=== PATIENT | female | born 1990 | race Caucasian/White ===

== ENCOUNTER 2020-09-15 13:13 | Outpatient (REF) | payer OTHER, SELFPAY ==
[2020-09-15 13:44] LABS: COVID-19 Test Negative (Negative)
== END 2020-09-15 13:14 | disposition home or self-care (01) ==
LOC: HO.EMPCOV 13:13
PROVIDERS: Visit Provider Internal Medicine
DX: Z20.822 Contact with and (suspected) exposure to COVID-19 (principal)
CPT/HCPCS: 36415; 87635

== ENCOUNTER → 2020-10-09 07:32 | Outpatient (BNVA) | payer OTHER, SELFPAY | PROVIDERS: Visit Provider Internal Medicine Endocrinology, Diabetes & Metabolism ==

== ENCOUNTER 2020-10-10 05:41 | Outpatient (REF) | payer OTHER, SELFPAY ==
[2020-10-10 08:01] LABS: Free T4 (Free Thyroxine) 1.48 ng/dL (0.71-1.85); Thyroid Stimulating Hormone 0.05 uIU/mL (0.32-4.0); Vitamin D 25-OH Total 20.9 ng/mL (>30)
== END 2020-10-10 05:42 | disposition home or self-care (01) ==
LOC: HO.LAB 05:41
PROVIDERS: Visit Provider Internal Medicine Endocrinology, Diabetes & Metabolism
DX: E89.0 Postprocedural hypothyroidism (principal); E55.9 Vitamin D deficiency, unspecified
CPT/HCPCS: 36415; 82306; 84439; 84443

== ENCOUNTER 2020-10-17 11:37 | Outpatient (REF) | payer OTHER, SELFPAY ==
[2020-10-22 06:06] LABS: HPV 16 RNA NOT DETECTED (NOT DETECTED); HPV mRNA E6/E7 rflx Detected (Not Detected)
== END 2020-10-17 11:38 | disposition home or self-care (01) ==
LOC: HO.LNP 11:37
PROVIDERS: Visit Provider Internal Medicine
DX: Z12.4 Encounter for screening for malignant neoplasm of cervix (principal); Z11.51 Encounter for screening for human papillomavirus (HPV)
CPT/HCPCS: 87624; 87625; 88142

== ENCOUNTER 2020-10-24 06:26 | Outpatient (REF) | payer OTHER, SELFPAY ==
[2020-10-24 07:23] LABS: Anion Gap 13 (12-20); Blood Urea Nitrogen 10 mg/dL (9-16); Calcium 8.8 mg/dL (8.4-10.2); Carbon Dioxide 23 mmol/L (22-29); Chloride 109 mmol/L (96-108); Cholesterol 180 mg/dL; Estimated Glomerular Filt Rate > 60; Glucose Fasting 88 mg/dL (60-99); HDL Cholesterol 43 mg/dL; LDL Cholesterol Calculated 116 mg/dl; Potassium 3.6 mmol/L (3.3-5.1); Sodium 141 mmol/L (135-145); Triglycerides 108 mg/dL
== END 2020-10-24 06:27 | disposition home or self-care (01) ==
LOC: HO.LAB 06:26
PROVIDERS: Visit Provider Internal Medicine
DX: Z00.01 Encounter for general adult medical examination with abnormal findings (principal); I10 Essential (primary) hypertension; E55.9 Vitamin D deficiency, unspecified
CPT/HCPCS: 36415; 80048; 80061

== ENCOUNTER → 2020-11-05 07:55 | Outpatient (BNVA) | payer OTHER, SELFPAY | PROVIDERS: PCP Internal Medicine; Visit Provider Obstetrics & Gynecology ==

== ENCOUNTER 2020-12-11 02:48 | Outpatient (REF) | payer OTHER, SELFPAY ==
[2020-12-11 06:41] LABS: Free T4 (Free Thyroxine) 1.24 ng/dL (0.71-1.85); Thyroid Stimulating Hormone 0.15 uIU/mL (0.32-4.0)
== END 2020-12-11 02:49 | disposition home or self-care (01) ==
LOC: HO.LAB 02:48
PROVIDERS: Visit Provider Internal Medicine Endocrinology, Diabetes & Metabolism
DX: E89.0 Postprocedural hypothyroidism (principal); E55.9 Vitamin D deficiency, unspecified
CPT/HCPCS: 36415; 84439; 84443

== ENCOUNTER 2020-12-12 13:49 | Outpatient (REF) | payer OTHER, SELFPAY | END 2020-12-12 13:50 | disposition home or self-care (01) | LOC: HO.LAB 13:49 | PROVIDERS: PCP Internal Medicine; Visit Provider Obstetrics & Gynecology | DX: N87.1 Moderate cervical dysplasia (principal); N72 Inflammatory disease of cervix uteri | CPT/HCPCS: 57454; 88305; 88342; 88360 ==

== ENCOUNTER → 2020-12-26 11:10 | Outpatient (BNVA) | payer OTHER, SELFPAY | PROVIDERS: PCP Internal Medicine; Visit Provider Obstetrics & Gynecology ==

== ENCOUNTER → 2021-01-09 10:40 | Outpatient (BNVA) | payer OTHER, SELFPAY | PROVIDERS: PCP Internal Medicine; Visit Provider Obstetrics & Gynecology ==

== ENCOUNTER 2021-01-10 10:22 | Outpatient (REF) | payer OTHER, SELFPAY ==
[2021-01-10 10:49] VITALS: BP 144/86; PULSE 73; RESP 16; TEMP 36.7; O2SAT 98
[2021-01-10 10:50] VITALS: BMI 27.8
--- NOTE | 2021-01-10 11:13 | MHC.SHP ---
Pre-Procedural Eval Section A The patient is an INPATIENT: No Changes since office visit: No Cold of Flu in the past 2 weeks, No New Medical Problems, No Changes in Medication and No Patient answered all questions The History & Physical has been completed within 30 days and I have reviewed it.: Yes Section B Chief Complaint: C1N2 Allergies: Allergies Allergy/AdvReac Type Severity Reaction Status Date / Time amoxicillin [Amoxicillin] Allergy Unknown HIVES Verified 01/09/21 10:48 Plan Diagnosis/Plan: Unchanged I have reviewed the history and physical and performed a pertinent physical examination on my patient. No changes have occurred unless specified.
--- NOTE | 2021-01-10 11:13 | PM.OP ---
Brief Operative Note Date of Service: 08/16/20 Pre-op diagnosis: ANITA 2 with negative ECC Post-op diagnosis: same Procedure: LEEP Surgeon: Anatoliy Jaimes MD Anesthesia: other (Paracervical block) Was an Admissions Counselor used for this Procedure?: No Estimated blood loss (mL): 0 Pathology: other (Ant+post Cerv lip) Condition: stable Disposition: other (Home)
--- NOTE | 2021-01-10 11:14 | W.PM.OPN ---
Operative Note Operative Note Date of Service: 08/16/20 Narrative: Preop diagnosis: ANITA 2 with Negative ECC Operation: LEEP Post op diagnosis: same Anesthesia: paracervical block Complications: none Pathology: Anterior and Posterior cervical lip QBL: minimal Procedure: The patient was put in the dorsal lithotomy position, was prepped and draped in the usual sterile fashion. A sterile speculum was inserted inside the patient vagina. Colposcopy done with acetic acid, 9 and 12 o'clcok acetowhite lesions identified. Using Lugol solution the cervix with Dyed with Lugol solution to identifiy the abnormal demarcating line. 10 cc of Marcaine0.5% with epinephrine were given at 2,4 , 8, and 10 o'clock. Using a medium-size loop wire, the anterior cervical lip was excised followed by the posterior cervical lip. Hemostasis was assured using cautery and Monsel solution. All instruments were taken out of the patient's vaginal cavity. the patient tolerated the procedure well and was discharged home with the following instructions: call if temperature is above 100.4, vaginal bleeding, abdominal pain or nausea or vomiting. Follow-up in the office in 2 weeks for postop visit
== END 2021-01-10 10:23 | disposition home or self-care (01) ==
LOC: HO.MS 10:22
PROVIDERS: PCP Internal Medicine; Visit Provider Obstetrics & Gynecology
PROC: 0UBC7ZZ Excision of Cervix, Via Natural or Artificial Opening (ICD-10-PCS; CPT 57522; principal; 2021-01-10 10:40)
DX: N87.1 Moderate cervical dysplasia (principal); Z88.0 Allergy status to penicillin; E05.00 Thyrotoxicosis with diffuse goiter without thyrotoxic crisis or storm; E28.2 Polycystic ovarian syndrome; Z79.899 Other long term (current) drug therapy
CPT/HCPCS: 57460; 88307

== ENCOUNTER → 2021-01-21 14:45 | Outpatient (BNVA) | payer OTHER, SELFPAY | PROVIDERS: PCP Internal Medicine; Visit Provider Obstetrics & Gynecology ==

== ENCOUNTER 2021-02-13 05:32 | Outpatient (REF) | payer OTHER, SELFPAY ==
[2021-02-13 08:20] LABS: Free T4 (Free Thyroxine) 1.32 ng/dL (0.71-1.85); Thyroid Stimulating Hormone 0.39 uIU/mL (0.32-4.0)
== END 2021-02-13 05:33 | disposition home or self-care (01) ==
LOC: HO.LAB 05:32
PROVIDERS: Visit Provider Internal Medicine Endocrinology, Diabetes & Metabolism
DX: E89.0 Postprocedural hypothyroidism (principal)
CPT/HCPCS: 36415; 84439; 84443

== ENCOUNTER 2021-06-19 03:57 | Outpatient (REF) | payer OTHER, SELFPAY ==
[2021-06-19 08:13] LABS: Free T4 (Free Thyroxine) 1.04 ng/dL (0.71-1.85); Thyroid Stimulating Hormone 4.37 uIU/mL (0.32-4.0)
== END 2021-06-19 03:58 | disposition home or self-care (01) ==
LOC: HO.LAB 03:57
PROVIDERS: Visit Provider Internal Medicine Endocrinology, Diabetes & Metabolism
DX: E55.9 Vitamin D deficiency, unspecified (principal)
CPT/HCPCS: 36415; 84439; 84443

== ENCOUNTER → 2021-06-26 07:19 | Outpatient (BNVA) | payer OTHER, SELFPAY | PROVIDERS: PCP Internal Medicine; Visit Provider Internal Medicine ==

== ENCOUNTER 2021-08-07 07:13 | Outpatient (REF) | payer OTHER, SELFPAY ==
--- NOTE | ~2021-08-07 | US_ITS ---
EXAMINATION: US SOFT TISSUE OF THE NECK CLINICAL INFORMATION: Postprocedural hypothyroidism. History of radiation/iodine treatment at 10 years old. COMPARISON: None TECHNIQUE: Linear transducer chapa-scale and color Doppler examination of the thyroid bed and surrounding soft tissue. FINDINGS: Both thyroid lobes are not visualized. There are no nodules, mass or lymph nodes seen in the thyroid bed. No obvious thyroid tissue seen. US/US thyroid IMPRESSION: No obvious thyroid tissue seen at this time. There are no nodules or lymph nodes seen in the thyroid bed region.
== END 2021-08-07 07:14 | disposition home or self-care (01) ==
LOC: HO.US 07:13
PROVIDERS: PCP Internal Medicine; Visit Provider Internal Medicine
DX: E89.0 Postprocedural hypothyroidism (principal)
CPT/HCPCS: 76536

== ENCOUNTER 2021-08-09 07:42 | Outpatient (REF) | payer OTHER, SELFPAY ==
[2021-08-09 08:25] LABS: Estimated Average Glucose 91 mg/dL; Hemoglobin A1c % 4.8 %
[2021-08-09 08:31] LABS: Glucose Fasting 82 mg/dL (60-99)
[2021-08-09 08:32] LABS: Alanine Aminotransferase 29 U/L (0-31); Albumin Level 4.4 g/dL (3.5-5.0); Alkaline Phosphatase 73 U/L (39-117); Anion Gap 12 (12-20); Aspartate Amino Transferase 19 U/L (5-31); Bilirubin Total 0.6 mg/dL (0.0-1.0); Blood Urea Nitrogen 13 mg/dL (9-16); Calcium 9.2 mg/dL (8.4-10.2); Carbon Dioxide 23 mmol/L (22-29); Chloride 109 mmol/L (96-108); Cholesterol 194 mg/dL; Estimated Glomerular Filt Rate > 60; Glucose Random 83 mg/dL (60-115); HDL Cholesterol 56 mg/dL; LDL Cholesterol Calculated 124 mg/dl; Sodium 140 mmol/L (135-145); Total Protein 7.6 g/dL (6.5-8.0); Triglycerides 71 mg/dL
[2021-08-09 08:52] LABS: Free T4 (Free Thyroxine) 1.49 ng/dL (0.71-1.85); HCG Quantitative < 2 mIU/mL; Thyroid Stimulating Hormone 1.05 uIU/mL (0.32-4.0)
[2021-08-09 09:21] LABS: Cortisol Random 24.5 ug/dL
[2021-08-09 10:42] LABS: Glucose 2 Hour 127 mg/dL
[2021-08-09 12:41] LABS: Glucose 1 Hour 155 mg/dL
[2021-08-10 06:36] LABS: LDL Cholesterol Direct 116 mg/dL (<100)
[2021-08-10 14:37] LABS: Follicle Stimulating Hormone 6.5 mIU/mL; Lutenizing Hormone 8.9 mIU/mL; Prolactin 13.3 ng/mL; Triiodothyronine T3 Total 109 ng/dL (76-181)
[2021-08-11 18:56] LABS: Adrenocorticotropic Hormone 114 pg/mL (6-50)
[2021-08-11 19:35] LABS: DHEA Sulfate 597 mcg/dL (23-266)
[2021-08-12 10:21] LABS: Sex Hormone Binding Globulin 40 nmol/L (17-124)
[2021-08-14 10:57] LABS: Testosterone, Free 8.4 pg/mL (0.1-6.4); Testosterone, Total 62 ng/dL (2-45)
[2021-08-14 22:06] LABS: Androstenedione 283 ng/dL
[2021-08-23 21:22] LABS: Estradiol Free 0.99 pg/mL; Estradiol, Ultrasensitive 57 pg/mL
== END 2021-08-09 07:43 | disposition home or self-care (01) ==
LOC: HO.LAB 07:42
PROVIDERS: PCP Internal Medicine; Visit Provider Internal Medicine
DX: E89.0 Postprocedural hypothyroidism (principal); E28.2 Polycystic ovarian syndrome
CPT/HCPCS: 36415; 80053; 80061; 82024; 82157; 82533; 82627; 82670; 82681; 83001; 83002; 83036; 83498; 83721; 84146; 84270; 84402; 84403; 84439; 84443; 84480; 84702

== ENCOUNTER 2021-08-21 07:26 | Outpatient (REF) | payer OTHER, SELFPAY ==
--- NOTE | ~2021-08-21 | MR_ITS ---
EXAMINATION: MR BRAIN WITHOUT AND WITH CONTRAST CLINICAL INFORMATION: Pituitary dependent Ksenia's disease. COMPARISON: None available. TECHNIQUE: Multiplanar, multisequence imaging of the brain was performed before and after the intravenous administration of 4 mL of Gadavist. FINDINGS: There is no acute infarction, mass, hemorrhage, or extra-axial collection. No abnormal or unexpected intracranial enhancement is seen. The ventricles, sulci, and basilar cisterns are normal in size and configuration. The pituitary gland demonstrates normal size and morphology. No definite hypoenhancing lesion is seen within the gland. The infundibulum is normal in thickness and morphology and inserts in the midline. The hypothalamus appears normal. The cavernous sinuses demonstrate symmetric enhancement. The flow voids of the major intracranial arteries appear intact. The bones and extracranial soft tissues are within normal limits. There is mild paranasal sinus mucosal thickening. MR/MR head/brain wo/w con IMPRESSION: No definite pituitary or hypothalamic abnormality is seen. No intracranial mass or acute abnormality.
== END 2021-08-21 07:27 | disposition home or self-care (01) ==
LOC: HO.MRI 07:26
PROVIDERS: PCP Internal Medicine; Visit Provider Internal Medicine
DX: E24.0 Pituitary-dependent Cushing's disease (principal)
CPT/HCPCS: 70553; A9585

== ENCOUNTER 2021-08-22 07:24 | Outpatient (REF) | payer OTHER, SELFPAY ==
[2021-08-22 09:02] LABS: Cortisol Random < 1.0 ug/dL
[2021-08-25 18:11] LABS: Adrenocorticotropic Hormone 6 pg/mL (6-50)
[2021-09-02 18:16] LABS: Dexamethasone 158 ng/dL
== END 2021-08-22 07:25 | disposition home or self-care (01) ==
LOC: HO.LAB 07:24
PROVIDERS: PCP Internal Medicine; Visit Provider Internal Medicine
DX: E24.0 Pituitary-dependent Cushing's disease (principal)
CPT/HCPCS: 36415; 80299; 82024; 82533

== ENCOUNTER 2021-09-03 07:44 | Outpatient (REF) | payer OTHER, SELFPAY ==
[2021-09-09 18:41] LABS: Saliva Cortisol 0.14 mcg/dL
== END 2021-09-03 07:45 | disposition home or self-care (01) ==
LOC: HO.LNP 07:44
PROVIDERS: Visit Provider Internal Medicine
DX: E24.0 Pituitary-dependent Cushing's disease (principal)
CPT/HCPCS: 82530

== ENCOUNTER 2021-09-15 09:35 | Outpatient (REF) | payer OTHER, SELFPAY ==
[2021-09-19 18:06] LABS: Saliva Cortisol 1.16 mcg/dL
== END 2021-09-15 09:36 | disposition home or self-care (01) ==
LOC: HO.LNP 09:35
PROVIDERS: Visit Provider Internal Medicine
DX: E24.0 Pituitary-dependent Cushing's disease (principal)
CPT/HCPCS: 82530

== ENCOUNTER 2021-09-26 11:29 | Outpatient (REF) | payer OTHER, SELFPAY ==
[2021-10-01 14:47] LABS: Saliva Cortisol 0.18 mcg/dL
== END 2021-09-26 11:30 | disposition home or self-care (01) ==
LOC: HO.LNP 11:29
PROVIDERS: Visit Provider Internal Medicine
DX: E24.0 Pituitary-dependent Cushing's disease (principal)
CPT/HCPCS: 82530

== ENCOUNTER 2021-10-03 07:18 | Outpatient (REF) | payer OTHER, SELFPAY ==
[2021-10-03 09:14] LABS: Cortisol Random 8.7 ug/dL
[2021-10-06 16:35] LABS: Adrenocorticotropic Hormone 8 pg/mL (6-50)
== END 2021-10-03 07:19 | disposition home or self-care (01) ==
LOC: HO.LAB 07:18
PROVIDERS: PCP Internal Medicine; Visit Provider Internal Medicine
DX: E24.0 Pituitary-dependent Cushing's disease (principal)
CPT/HCPCS: 36415; 82024; 82533

== ENCOUNTER 2021-10-11 07:07 | Outpatient (REF) | payer OTHER, SELFPAY ==
[2021-10-11 08:45] LABS: Cortisol Random < 1.0 ug/dL
[2021-10-16 13:22] LABS: Dexamethasone 175 ng/dL
[2021-10-17 11:07] LABS: Adrenocorticotropic Hormone 6 pg/mL (6-50)
== END 2021-10-11 07:08 | disposition home or self-care (01) ==
LOC: HO.LAB 07:07
PROVIDERS: PCP Internal Medicine; Visit Provider Internal Medicine
DX: E24.0 Pituitary-dependent Cushing's disease (principal)
CPT/HCPCS: 36415; 80299; 82024; 82533

== ENCOUNTER 2021-10-18 08:28 | Outpatient (REF) | payer OTHER, SELFPAY ==
[2021-10-18 09:03] LABS: Total Volume 24 Hour Urine 1450 mL
[2021-10-18 10:00] LABS: Creatinine, 24Hr Urine 1.4 G/Day (1.0-2.0); Creatinine, mg/dL 93.28
[2021-10-23 21:41] LABS: Cortisol Free, 24 Hr Urine 27.1 mcg/24 h (4.0-50.0); Creatinine, 24 Hr Urine 1.43 g/24 h (0.50-2.15); Total Volume, 24 Hr Urine 1450 mL
== END 2021-10-18 08:29 | disposition home or self-care (01) ==
LOC: HO.LNP 08:28
PROVIDERS: Visit Provider Internal Medicine
DX: E24.0 Pituitary-dependent Cushing's disease (principal)
CPT/HCPCS: 82530; 82570

== ENCOUNTER 2021-10-20 10:29 | Outpatient (REF) | payer OTHER, SELFPAY ==
[2021-10-20 11:45] LABS: MANUAL DIFF FLAG NO
[2021-10-20 11:53] LABS: Basophils Absolute Auto 0.1 X10*3/uL (0.0-0.2); Basophils Percent Auto 0.9 % (0-2); Eosinophils Absolute Auto 0.1 X10*3/uL (0.0-0.4); Eosinophils Percent Auto 1.5 % (0-4); Hematocrit 37.8 % (37.0-47.0); Hemoglobin 12.8 g/dl (12.0-16.0); Imm Gran Abs Auto 0.03 X10*3/uL (0.00-0.03); Imm Gran Pct Auto 0.4 % (0.0-0.4); Lymphocytes Absolute Auto 2.4 X10*3/uL (1.2-4.9); Lymphocytes Percent Auto 36.3 % (20-40); Mean Corpuscular HGB Conc 33.9 g/dl (31.0-35.0); Mean Corpuscular Hemoglobin 30.3 pg (27.0-33.0); Mean Corpuscular Volume 89.6 fL (80.0-98.0); Mean Platelet Volume 9.4 fL (9.4-12.3); Monocytes Absolute Auto 0.6 X10*3/uL (0.1-1.2); Monocytes Percent Auto 8.8 % (2-11); Neutrophils Absolute Auto 3.5 x10*3/uL (2.0-8.3); Neutrophils Percent Auto 52.1 % (45-73); Platelet Count 357 X10*3/uL (160-400); Red Blood Count 4.22 X10*6/uL (4.20-5.50); Red Cell Distribution Width 13.2 % (11.0-16.0); White Blood Count 6.7 X10*3/uL (4.8-10.8)
[2021-10-20 12:04] LABS: Cholesterol 204 mg/dL; Glucose Fasting 83 mg/dL (60-99); HDL Cholesterol 60 mg/dL; LDL Cholesterol Calculated 128 mg/dl; Triglycerides 81 mg/dL
[2021-10-20 12:22] LABS: Vitamin D 25-OH Total 20.1 ng/mL (>30)
== END 2021-10-20 10:30 | disposition home or self-care (01) ==
LOC: HO.HMGCLDS 10:29
PROVIDERS: Visit Provider Internal Medicine
DX: Z00.01 Encounter for general adult medical examination with abnormal findings (principal); E55.9 Vitamin D deficiency, unspecified; E89.0 Postprocedural hypothyroidism
CPT/HCPCS: 36415; 80061; 82306; 82947; 85025

== ENCOUNTER → 2021-10-22 09:09 | Outpatient (BNVA) | payer OTHER, SELFPAY | PROVIDERS: PCP Internal Medicine; Visit Provider Internal Medicine ==

== ENCOUNTER 2021-10-24 | Outpatient (REF) | payer OTHER, SELFPAY ==
[2021-10-31 16:32] LABS: Saliva Cortisol 0.65 mcg/dL
[2021-10-31 16:32] LABS: Saliva Cortisol <0.03 mcg/dL
[2021-10-31 16:32] LABS: Saliva Cortisol <0.03 mcg/dL
[2021-10-31 16:32] LABS: Saliva Cortisol 0.17 mcg/dL
== END 2021-10-24 00:01 | disposition home or self-care (01) ==
LOC: HO.LNP
PROVIDERS: Visit Provider Internal Medicine
DX: E24.0 Pituitary-dependent Cushing's disease (principal)
CPT/HCPCS: 82530

== ENCOUNTER 2021-10-25 07:52 | Outpatient (REF) | payer OTHER, SELFPAY | END 2021-10-25 07:53 | disposition home or self-care (01) | LOC: HO.LNP 07:52 | PROVIDERS: Visit Provider Internal Medicine | DX: Z13.89 Encounter for screening for other disorder (principal) ==

== ENCOUNTER 2021-10-30 11:06 | Outpatient (REF) | payer OTHER, SELFPAY ==
--- NOTE | ~2021-10-30 | US_ITS ---
EXAMINATION: US PELVIS CLINICAL INFORMATION: Elevated testosterone. COMPARISON: None TECHNIQUE: Ultrasound of the pelvis is performed using both transabdominal and transvaginal transducers along with Doppler. Transvaginal imaging is performed due to inadequate visualization transabdominally. FINDINGS: Uterus: The uterus is anteverted, anteflexed and measures 8.6 cm in length, 4.02 mL in AP and 5.70 cm in transverse dimension. The double wall endometrial thickness is 1.33 cm. The uterus is smooth in contour and has normal myometrial echogenicity. No visible fibroid. Adnexa: Both ovaries are visualized. There is normal color flow to the adnexa. There is no ovarian torsion. There is no pelvic ascites or fluid collection. Right ovary measures 3.08 x 2.13 x 2.70 cm and volume 9.27 mL. No focal lesion seen. Previously right ovary measured 3.3 x 2.1 x 3.4 cm. Left ovary measures 2.68 x 2.14 x 2.33 cm and volume 7.00 mL. The left ovary is unremarkable. Previously it measured 2.8 x 2.1 x 2.0 cm. There is no free fluid in cul-de-sac. US/US pelvic and transvaginal IMPRESSION: Unremarkable uterus and ovaries.
== END 2021-10-30 11:07 | disposition home or self-care (01) ==
LOC: HO.US 11:06
PROVIDERS: Visit Provider Internal Medicine
DX: E24.0 Pituitary-dependent Cushing's disease (principal); R79.89 Other specified abnormal findings of blood chemistry
CPT/HCPCS: 76830; 76856

== ENCOUNTER 2021-11-21 09:48 | Outpatient (REF) | payer OTHER, SELFPAY ==
--- NOTE | ~2021-11-21 | CT_ITS ---
EXAMINATION: CT ABDOMEN WITHOUT AND WITH CONTRAST CLINICAL INFORMATION: Pituitary dependent Cushings disease COMPARISON: Previous CT of the abdomen and pelvis March 2017 TECHNIQUE: Contiguous axial thin section helical images of the abdomen were performed before and after the administration of oral contrast and 85 mL of Omnipaque 350 intravenous contrast. The data set was reformatted in the coronal and sagittal planes and reviewed on an independent workstation. This CT examination was performed using dose optimization techniques as appropriate, variously including the following: *Automated exposure control *Adjustment of mA and/or kV according to patient size (this includes techniques or standardized protocols for targeted exams where dose is matched to indication/reason for exam; i.e. extremities or head) *Use of iterative reconstruction technique DLP: 367 mGy-cm FINDINGS: LUNG BASES: Unremarkable LIVER, GALLBLADDER, AND BILIARY TREE: Unremarkable PANCREAS: Unremarkable SPLEEN: Unremarkable ADRENAL GLANDS AND KIDNEYS: The adrenal glands are normal-appearing. No nodule is seen. There are 2 small low-attenuation lesions in the lower pole of the left kidney probably representing cysts. The largest measures 1 cm. No imaging follow-up is indicated. The kidneys are otherwise normal appearing. BOWEL LOOPS: There is diverticulosis of the colon. Visualized bowel is otherwise unremarkable. There is a small esophageal hernia. The stomach is otherwise unremarkable. LYMPH NODES: Normal. VASCULAR: Unremarkable. BONES: Unremarkable CT/CT abdomen wo/w con IMPRESSION: Normal-appearing adrenal glands. No adrenal lesion seen. Small left renal cysts. Diverticulosis of the colon. Small esophageal hernia. Fleischner guidelines were followed.
[2021-11-21] MEDS: iohexoL 350 MG/ML 100 ML INFUS..BTL IV (10:36)
== END 2021-11-21 09:49 | disposition home or self-care (01) ==
LOC: HO.CT 09:48
PROVIDERS: Visit Provider Internal Medicine
DX: E24.0 Pituitary-dependent Cushing's disease (principal)
CPT/HCPCS: 74170; Q9967

== ENCOUNTER → 2022-01-15 07:33 | Outpatient (BNVA) | payer OTHER, SELFPAY | PROVIDERS: PCP Internal Medicine; Visit Provider Internal Medicine | DX: Z13.89 Encounter for screening for other disorder (principal) ==

== ENCOUNTER 2022-01-27 15:14 | Outpatient (REF) | payer OTHER, SELFPAY ==
[2022-02-03 11:51] LABS: HPV mRNA E6/E7 rflx Not Detected (Not Detected)
== END 2022-01-27 15:15 | disposition home or self-care (01) ==
LOC: HO.LAB 15:14
PROVIDERS: PCP Internal Medicine; Visit Provider Obstetrics & Gynecology
DX: Z01.419 Encounter for gynecological examination (general) (routine) without abnormal findings (principal); Z11.51 Encounter for screening for human papillomavirus (HPV)
CPT/HCPCS: 87624; 88142

== ENCOUNTER 2022-02-14 07:49 | Outpatient (REF) | payer OTHER, SELFPAY ==
[2022-02-14 08:09] LABS: COVID-19 Test Negative (Negative); IDNOW Serial# 16C4AD1C
== END 2022-02-14 07:50 | disposition home or self-care (01) ==
LOC: HO.LAB 07:49
PROVIDERS: Visit Provider Internal Medicine
DX: Z20.822 Contact with and (suspected) exposure to COVID-19 (principal)
CPT/HCPCS: 87635; C9803

== ENCOUNTER 2022-02-24 07:20 | Outpatient (REF) | payer OTHER, SELFPAY ==
[2022-02-24 08:29] LABS: Cortisol Random 12.2 ug/dL
[2022-02-24 08:36] LABS: Free T4 (Free Thyroxine) 1.74 ng/dL (0.71-1.85); Thyroid Stimulating Hormone 0.09 uIU/mL (0.32-4.0); Vitamin D 25-OH Total 72.9 ng/mL (>30)
[2022-02-25 21:36] LABS: Adrenocorticotropic Hormone 12 pg/mL (6-50)
[2022-02-26 08:57] LABS: DHEA Sulfate 458 mcg/dL (19-237); Sex Hormone Binding Globulin 38 nmol/L (17-124)
[2022-03-02 11:41] LABS: Testosterone, Free 8.5 pg/mL (0.1-6.4); Testosterone, Total 60 ng/dL (2-45)
[2022-03-02 15:42] LABS: Androstenedione 253 ng/dL
== END 2022-02-24 07:21 | disposition home or self-care (01) ==
LOC: HO.LAB 07:20
PROVIDERS: PCP Internal Medicine; Visit Provider Internal Medicine
DX: E55.9 Vitamin D deficiency, unspecified (principal); E89.0 Postprocedural hypothyroidism; L68.0 Hirsutism
CPT/HCPCS: 36415; 82024; 82157; 82306; 82533; 82627; 84270; 84402; 84403; 84439; 84443

== ENCOUNTER 2022-04-11 08:50 | Outpatient (REF) | payer OTHER, SELFPAY ==
[2022-04-11 09:53] LABS: Thyroid Stimulating Hormone 1.84 uIU/mL (0.32-4.0)
== END 2022-04-11 08:51 | disposition home or self-care (01) ==
LOC: HO.LAB 08:50
PROVIDERS: Visit Provider Internal Medicine
DX: E89.0 Postprocedural hypothyroidism (principal)
CPT/HCPCS: 36415; 84439; 84443

== ENCOUNTER 2022-04-14 11:45 | Outpatient (REF) | payer OTHER, SELFPAY ==
[2022-04-14 15:16] LABS: CT PCR NOT DETECTED (Not Detect.); NG PCR NOT DETECTED (Not Detect.)
[2022-04-15 14:20] LABS: BV Int Neg Control Negative (Negative); BV Int Pos Control Positive (Positive)
== END 2022-04-14 11:46 | disposition home or self-care (01) ==
LOC: HO.LAB 11:45
PROVIDERS: Visit Provider Obstetrics & Gynecology
DX: Z11.3 Encounter for screening for infections with a predominantly sexual mode of transmission (principal); Z20.2 Contact with and (suspected) exposure to infections with a predominantly sexual mode of transmission
CPT/HCPCS: 87480; 87491; 87510; 87591; 87660

== ENCOUNTER 2022-06-05 12:23 | Outpatient (REF) | payer OTHER, SELFPAY ==
[2022-06-05 12:47] LABS: COVID-19 Test Negative (Negative); IDNOW Serial# 9DB6401D
== END 2022-06-05 12:24 | disposition home or self-care (01) ==
LOC: HO.LAB 12:23
PROVIDERS: Visit Provider Internal Medicine
DX: Z20.822 Contact with and (suspected) exposure to COVID-19 (principal)
CPT/HCPCS: 87635; C9803

== ENCOUNTER 2022-07-25 06:33 | Outpatient (REF) | payer OTHER, SELFPAY ==
[2022-07-25 07:46] LABS: Alanine Aminotransferase 12 U/L (0-31); Albumin Level 4.2 g/dL (3.5-5.0); Alkaline Phosphatase 51 U/L (39-117); Anion Gap 13 (12-20); Aspartate Amino Transferase 12 U/L (5-31); Bilirubin Total 0.4 mg/dL (0.0-1.0); Blood Urea Nitrogen 12 mg/dL (9-16); Calcium 9.4 mg/dL (8.4-10.2); Carbon Dioxide 21 mmol/L (22-29); Chloride 111 mmol/L (96-108); Estimated Glomerular Filt Rate > 60; Free T4 (Free Thyroxine) 1.33 ng/dL (0.71-1.85); Glucose Random 97 mg/dL (60-115); HCG Quantitative < 2 mIU/mL; Potassium 4.4 mmol/L (3.3-5.1); Sodium 141 mmol/L (135-145); Thyroid Stimulating Hormone 2.98 uIU/mL (0.32-4.0); Total Protein 7.4 g/dL (6.5-8.0)
[2022-07-27 01:57] LABS: LDL Cholesterol Direct 156 mg/dL (<100)
[2022-07-27 05:12] LABS: DHEA Sulfate 316 mcg/dL (19-237); Follicle Stimulating Hormone 7.3 mIU/mL; Lutenizing Hormone 5.7 mIU/mL; Sex Hormone Binding Globulin 97 nmol/L (17-124)
[2022-08-06 22:38] LABS: Estradiol Free 1.09 pg/mL; Estradiol, Ultrasensitive 75 pg/mL
== END 2022-07-25 06:34 | disposition home or self-care (01) ==
LOC: HO.LAB 06:33
PROVIDERS: Visit Provider Internal Medicine
DX: E28.2 Polycystic ovarian syndrome (principal); E89.0 Postprocedural hypothyroidism
CPT/HCPCS: 36415; 80053; 82627; 82670; 82681; 83001; 83002; 83721; 84270; 84439; 84443; 84702

== ENCOUNTER 2022-08-05 11:30 | Outpatient (REF) | payer OTHER, SELFPAY ==
[2022-08-05 11:55] LABS: COVID-19 Test Negative (Negative); IDNOW Serial# 55D5AD1C
== END 2022-08-05 11:31 | disposition home or self-care (01) ==
LOC: HO.LAB 11:30
PROVIDERS: Visit Provider Internal Medicine
DX: Z20.822 Contact with and (suspected) exposure to COVID-19 (principal)
CPT/HCPCS: 87635; C9803

== ENCOUNTER → 2022-09-30 07:28 | Outpatient (BNVA) | payer OTHER, SELFPAY | PROVIDERS: PCP Internal Medicine; Visit Provider Internal Medicine | DX: Z13.89 Encounter for screening for other disorder (principal) ==

== ENCOUNTER 2022-12-19 05:59 | Outpatient (REF) | payer OTHER, SELFPAY ==
[2022-12-19 06:58] LABS: Cholesterol 167 mg/dL; HDL Cholesterol 56 mg/dL; LDL Cholesterol Calculated 77 mg/dl; Triglycerides 171 mg/dL
[2022-12-20 16:28] LABS: LDL Cholesterol Direct 77 mg/dL (<100)
== END 2022-12-19 06:00 | disposition home or self-care (01) ==
LOC: HO.LAB 05:59
PROVIDERS: Visit Provider Internal Medicine
DX: E78.5 Hyperlipidemia, unspecified (principal)
CPT/HCPCS: 36415; 80061; 83721

== ENCOUNTER → 2022-12-30 07:24 | Outpatient (BNVA) | payer OTHER, SELFPAY | PROVIDERS: PCP Internal Medicine; Visit Provider Internal Medicine | DX: Z13.89 Encounter for screening for other disorder (principal) ==

== ENCOUNTER 2023-03-01 15:00 | Outpatient (REF) | payer OTHER, SELFPAY ==
[2023-03-04 21:17] LABS: HPV mRNA E6/E7 rflx Not Detected (Not Detected)
== END 2023-03-01 15:01 | disposition home or self-care (01) ==
LOC: HO.LNP 15:00
PROVIDERS: PCP Internal Medicine; Visit Provider Obstetrics & Gynecology
DX: Z01.419 Encounter for gynecological examination (general) (routine) without abnormal findings (principal); Z11.51 Encounter for screening for human papillomavirus (HPV)
CPT/HCPCS: 87624; 88142

== ENCOUNTER 2023-09-27 07:50 | Outpatient (AMB) | payer OTHER, SELFPAY ==
[2023-09-27 07:53] VITALS: BP 112/76; PULSE 112; BMI 29.7
--- NOTE | 2023-09-27 07:53 | MHC.OFFVIS ---
Intake Vital Signs 09/27/23 07:53 Height 5 ft 8 in Weight 195 lb 8.8 oz BMI 29.7 BP 112/76 Blood Pressure Location Rt brachial Position Sitting Pulse 112 H Pulse Source Pulse Oximeter Intake Visit Reasons: F/U PCOS, needs 30 min Intake Note: Patient presents today for PCOS follow up, last seen by Dr. Cool on 12/30/2022. Preparer Required: No Accompanied by: Self / Same As Patient Allergies amoxicillin [Amoxicillin] Allergy (Unknown, Verified 09/27/23 07:55) HIVES Medication List - Last Reconciled 09/27/23 by Hayes Louis MD atorvastatin 10 mg PO BEDTIME famotidine 40 mg PO DAILY 90 days levothyroxine 125 mcg PO DAILY norgestimate-ethinyl estradiol 0.25-35 mg-mcg (Sprintec (28)) 1 tab PO DAILY 3 months HPI HPI Comments History of Present Illness Details 32 YO Female with a PMHx of Grave's disease S/P I-131 ablation, now with hypothyroidism who is seen in F/U for hypothyroidism as well as PCOS. The patient last saw Dr. Cool 12/30/2022 She was diagnosed with Grave's disease at 9 years old and was followed by a Pediatric [facility] at [facility]. She received I131 ablation in 1999, but is unsure of the dose. She subsequently developed postablative hypothyroidism. She has remained on levothyroxine ever since, but has had many issues with compliance. She at times is overreplaced when she is taking her lt4 daily, and at times hypothyroid when she is poorly compliant. She is currently using levothyroxine 125 mcg daily. This was decreased from 137 mcg when her TSH was found to be overly suppressed. 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 She had a biochemical assessment for this which revealed an elevated DHEA-s, Androstenedione and testosterone levels. She had ovarian and adrenal imaging in 2017 which was WNL. It appears she did undergo a 1 mg DSST in 2017 which was WNL. After her initial visit with me we repeated her full evaluation, which reveals labs concerning for Ksenia's disease with elevated ACTH, as well as elevated androgen, testosterone and DHEA-s levels. Midnight salivary cortisol levels were elevated, but these were completed when she was working overnight. 1 mg overnight DSST was WNL. She also underwent a pituitary MRI which was WNL. Adrenal imaging was completed 11/21/2021 completely WNL with no evidence of any adrenal masses. There were 2 small cystic appearing lesions noted within the kidney. Ovarian imaging was completed 10/30/2021 and also was WNL. We completed a salivary cortisol profile, which was also WNL effectively ruling out ksenia's disease. She is now off night shifts, and is working a regular daytime schedule. Labs were repeated with ACTH and Cortisol am WNL. Her Androstenedione, DHEA-s and both Free and Total testosterone have been elevated. She is not actively trying to conceive. She is currently using Sprintec OCP. Labs reveal elevated LDL. She denies any family history of premature cardiac or CAD. She was started on Atorvastatin 10 mg PO daily and LDL is now at goal. She is tolerating this well. Ovarian US: 10/30/2021 Uterus: The uterus is anteverted, anteflexed and measures 8.6 cm in length, 4.02 mL in AP and 5.70 cm in transverse dimension. The double wall endometrial thickness is 1.33 cm.? The uterus is smooth in contour and has normal myometrial echogenicity. ? No visible fibroid. Adnexa: Both ovaries are visualized. There is normal color flow to the adnexa. There is no ovarian torsion.? There is no pelvic ascites or fluid collection. Right ovary measures 3.08 x 2.13 x 2.70 cm and volume 9.27 mL. No focal lesion seen. Previously right ovary measured 3.3 x 2.1 x 3.4 cm. Left ovary measures 2.68 x 2.14 x 2.33 cm and volume 7.00 mL. The left ovary is unremarkable. Previously it measured 2.8 x 2.1 x 2.0 cm. There is no free fluid in cul-de-sac. US/US pelvic and transvaginal IMPRESSION: Unremarkable uterus and ovaries. CT Abdomen: 11/21/2021 FINDINGS: LUNG BASES: Unremarkable? LIVER, GALLBLADDER, AND BILIARY TREE: Unremarkable? PANCREAS: Unremarkable? SPLEEN: Unremarkable? ADRENAL GLANDS AND KIDNEYS: The adrenal glands are normal-appearing. No nodule is seen. There are 2 small low-attenuation lesions in the lower pole of the left kidney probably representing cysts. The largest measures 1 cm. No imaging follow-up is indicated. The kidneys are otherwise normal appearing. BOWEL LOOPS: There is diverticulosis of the colon. Visualized bowel is otherwise unremarkable. There is a small esophageal hernia. The stomach is otherwise unremarkable.? LYMPH NODES: Normal. VASCULAR: Unremarkable. BONES: Unremarkable? CT/CT abdomen wo/w con IMPRESSION: Normal-appearing adrenal glands. No adrenal lesion seen. Small left renal cysts. Diverticulosis of the colon. Small esophageal hernia. Labs: Laboratory Tests 12/19/22 12/19/22 06:02 06:02 Triglycerides 171 Cholesterol 167 LDL Cholesterol Di rect 77 LDL Cholesterol, C alc 77 HDL Cholesterol 56 taking the BCP. Nl menses . Has increased hair growth bothersome. No excessive hair growth On L-T4 claims compliance . Not planning PFSH Medical History Adjustment disorder with mixed anxiety and depressed mood ASCUS with positive high risk HPV Elevated testosterone level Esophageal hiatal hernia Graves disease Heartburn Hirsutism HLD (hyperlipidemia) PCOS (polycystic ovarian syndrome) Postablative hypothyroidism Preeclampsia Renal cyst Vitamin D deficiency Surgical History Status post loop electrosurgical excision procedure (LEEP) of cervix Family History Paternal Grandmother Hypothyroidism Father Substance use disorder Social History Household Members: Spouse and Children Housing: House Patient Tobacco Use Status: Never used Tobacco e-Cigarette/Vaping Use: Never Used service: No Current occupational status: employed Current occupation: [employer] Sexual orientation: Straight/Heterosexual Gender identity: Female Cognitive needs: No Hearing needs: No Vision needs: Yes Female Reproductive History Menstrual Age of Menarche: 10 Physical Exam Vital Signs: Last Vital Signs Pulse 112 H 09/27/23 07:53 BP 112/76 09/27/23 07:53 BMI result Body Mass Index 29.7 Const Other: Thyroid gland is decrease in size weighs about 5 g. There are no thyroid nodules palpated. There is a scant amount of hair growth present on the chin and the sideburn region Assessment & Plan Assessment & Plan (1) PCOS (polycystic ovarian syndrome): Code(s): E28.2 - Polycystic ovarian syndrome Plan: This is a 32-year-old white female with a history of PCOS currently on control pill . Plan is to start spironolactone 100 mg q.d.. Patient was not to get on spironolactone and consequences of doing so. Will check basic metabolic panel in 10 days after starting spironolactone. (2) Postablative hypothyroidism: Code(s): E89.0 - Postprocedural hypothyroidism Plan: Currently be replaced on 125 mcg levothyroxine. Appears to be clinically euthyroid. Plan is to check TSH and free T4 in 10 days and adjust levothyroxine accordingly Orders: Orders Free T4 (Free Thyroxine) 10 Days E28.2 - Polycystic ovarian syndrome, E89.0 - Postprocedural hypothyroidism Thyroid Stimulating Hormone 10 Days E28.2 - Polycystic ovarian syndrome, E89.0 - Postprocedural hypothyroidism Basic Metabolic Panel 10 Days E28.2 - Polycystic ovarian syndrome Medications: New spironolactone 100 mg PO DAILY 30 tabs 5RF Coding Level of Care Code Est Pt Level 3 (12749) Diagnoses PCOS (polycystic ovarian syndrome) E28.2 Postablative hypothyroidism E89.0
== END 2023-09-27 08:31 | disposition home or self-care (01) ==
PROVIDERS: PCP Internal Medicine; Visit Provider Internal Medicine Endocrinology, Diabetes & Metabolism
DX: E28.2 Polycystic ovarian syndrome (principal); E89.0 Postprocedural hypothyroidism
CPT/HCPCS: 99213

== ENCOUNTER → 2023-09-27 07:50 | Outpatient (BNVA) | payer OTHER, SELFPAY | PROVIDERS: Visit Provider Internal Medicine Endocrinology, Diabetes & Metabolism ==

== ENCOUNTER 2023-10-21 10:48 | Outpatient (AMB) | payer OTHER, SELFPAY ==
[2023-10-21 11:20] VITALS: BP 108/90; PULSE 90; O2SAT 98; BMI 29.6
--- NOTE | 2023-10-21 11:20 | A.OFFPC_ITS ---
Vital Signs 10/21/23 11:20 Height 5 ft 8 in Weight 195 lb BMI 29.6 BP 108/90 H Blood Pressure Location Rt brachial Position Sitting Pulse 90 Pulse Source Pulse Oximeter Pulse Oximetry (%) 98 Oxygen Delivery Method Room Air Intake Visit Reasons: PE Intake Note: Pt is here today for her PE: Last papsmear 03/03/23 Allergies amoxicillin [Amoxicillin] Allergy (Unknown, Verified 10/21/23 11:50) HIVES Medication List - Last Reconciled 10/21/23 by Sherlyn Beth MD atorvastatin 10 mg PO BEDTIME famotidine 40 mg PO DAILY PRN levothyroxine 125 mcg PO DAILY norgestimate-ethinyl estradiol 0.25-35 mg-mcg (Sprintec (28)) 1 tab PO DAILY 3 months spironolactone 100 mg PO DAILY Tobacco use date assessed: 10/20/22 Dental Screening Dental Screen Date: 10/21/23 Did you have a dental visit in the last 12 months?: Yes Did you have a dental problem in the last 6 months where you did not have access to dental care?: Yes Was dental information given to patient?: Patient has dentist HPI HPI Comments History of Present Illness Details 33-year-old lady here today for physical exam. She has hyperlipidemia and was prescribed atorvastatin 10 mg daily but admits to not taking it on a regular basis has not really been following any particular diet or exercise . Has postablative hypothyroidism currently on levothyroxine 125 mcg daily and has PCOS recently started on spironolactone and followed by Dr. Louis. Patient states that she has been feeling well on this current dose. She sees Dr. Jaimes for routine Pap and pelvic exam, currently up-to-date. Currently on Sprintec for control. Takes famotidine as needed for heartburn symptoms which has been occurring infrequently [facility] Medical History (Updated 10/21/23 @ 14:50 by Sherlyn Beth MD) Annual visit for general adult medical examination with abnormal findings ANITA II (cervical intraepithelial neoplasia II) Adjustment disorder with mixed anxiety and depressed mood Esophageal hiatal hernia HLD (hyperlipidemia) PCOS (polycystic ovarian syndrome) Renal cyst Elevated testosterone level Hirsutism ASCUS with positive high risk HPV Heartburn Preeclampsia Postablative hypothyroidism Graves disease Vitamin D deficiency Surgical History Status post loop electrosurgical excision procedure (LEEP) of cervix Family History Paternal Grandmother Hypothyroidism Father Substance use disorder Social History Household Members: Spouse and Children Housing: House Patient Tobacco Use Status: Never used Tobacco e-Cigarette/Vaping Use: Never Used service: No Current occupational status: employed Current occupation: [employer] Sexual orientation: Straight/Heterosexual Gender identity: Female Cognitive needs: No Hearing needs: No Vision needs: Yes Female Reproductive History Menstrual Age of Menarche: 10 Questionnaire PHQ-9 Over the last 2 weeks, how often have you been bothered by any of the following problems? 1. Little interest or pleasure in doing things: not at all 2. Feeling down, depressed, or hopeless: not at all 3. Trouble falling or staying asleep, or sleeping too much: not at all 4. Feeling tired or having little energy: not at all 5. Poor appetite or overeating: not at all 6. Feeling bad about yourself - or that you are a failure or have let yourself or your family down: not at all 7. Trouble concentrating on things, such as reading the newspaper or watching television: not at all 8. Moving or speaking so slowly that other people could have noticed. Or the opposite - being so fidgety or restless that you have been moving around a lot more than usual: not at all 9. Thoughts that you would be better off or of hurting yourself in some way: not at all Total score: 0 Depression Screening Interpretation: Negative Depression Screening Done: Yes 82582 - PHQ-9 Billing: Yes Source: Developed by Drs. Hayes Anderson, Loreto Jackson, Skyler Tavares and colleagues, with an educational marlene from [employer]. Thrive Questionnaire Date Thrive assessed: 10/21/23 I am a: Patient What is your living situation today?: I have a steady place to live Within the past 12 months, did the food you bought not last and you didn't have the money to get more?: Never true Within the past 12 months, did you worry whether your food would run out before you got money to buy more?: Never true Do you have trouble paying for medicines?: No Do you have trouble getting transportation to medical appointments?: No Do you have trouble paying your heating and electricity bill?: No Do you have trouble taking care of your child, family member or friend?: No Do you have trouble with day-to-day activities such as bathing, preparing meals, shopping, managing finances, etc.?: No Are you currently unemployed and looking for a job?: No Are you interested in more education?: No THRIVE Score: 0 AUDIT C Alcohol Use Questionnaire (AUDIT-C) 1. How often do you have a drink containing alcohol?: Monthly or less 2. How many drinks containing alcohol do you have on a typical day when you are drinking?: 1 or 2 3. How often do you have six or more drinks on one occasion?: Never Total Score: 1 ALINA-7 AMB Questionnaire ALINA-7 Date ALINA - 7 assessed: 10/21/23 Feeling nervous, anxious, or on edge: 0 = Not at all Not being able to stop or control worryin = Not at all Worrying too much about different things: 0 = Not at all Trouble relaxin = Not at all Being so restless that it is hard to sit still: 0 = Not at all Becoming easily annoyed or irritable: 0 = Not at all Feeling afraid as if something awful might happen: 0 = Not at all Total ALINA-7 score (0-4 normal; 5-9 mild; 10-14 moderate; 15-21 severe): 0 Source: Developed by Drs. Hayes Anderson, Loreto Jackson, Skyler Tavares and colleagues, with an educational marlene from [employer]. ALINA-7 Assessment Billing ALINA-7 Assessment Tool: ALINA-7 Assessment 09705 Review of Systems Const Denies anorexia, Denies body aches, Denies difficulty sleeping, Denies fatigue, Denies headache(s), Denies lethargy and Denies poor appetite Eyes Details: Has myopia, sees Davie Kent Denies change in vision ENT Denies change in voice, Denies dysphagia, Denies dizziness, Denies headache(s), Denies hoarseness, Denies nasal congestion and Denies nasal discharge Card Denies chest pain, Denies irregular heart rhythm and Denies dyspnea Resp Denies cough and Denies dyspnea GI Denies abdominal pain, Denies melena, Denies bloating, Denies hematochezia, Denies change in bowel habits, Denies dysphagia, Reports heartburn (Occasional), Denies diarrhea and Denies nausea Reports no additional complaints Musc Denies myalgias, Denies muscle cramps, Denies numbness and Denies tingling Skin/Breast Details: Hair thinning Denies breast pain, Denies breast mass and Denies rash Neuro Reports no additional complaints, Denies dizziness, Denies headache(s), Denies numbness and Denies tingling Psych Reports no additional complaints Endo Denies cold intolerance, Denies fatigue and Denies heat intolerance Aj/Lymph Denies easy bruising Aller/Immun Reports no additional complaints Physical exam (Primary Care) Vital Signs: Last Vital Signs Pulse 90 10/21/23 11:20 BP 108/90 H 10/21/23 11:20 Pulse Ox 98 10/21/23 11:20 Oxygen Delivery Method Room Air 10/21/23 11:20 BMI result Body Mass Index 29.6 Tobacco/Smoking Status: Tobacco use Status Tobacco use date assessed 10/20/22 10/21/23 11:22 Patient Tobacco Use Status Never used Tobacco 10/21/23 11:22 e-Cigarette/Vaping Use Never Used 10/21/23 11:22 PHQ-9: PHQ-9 Score PHQ-9: Total score 0 10/21/23 14:18 Depression Screening Interpretation: Negative Thrive Assessment: Date of Thrive Assessment Date Thrive assessed 10/21/23 10/21/23 11:22 Const Other: Alert oriented x3, no acute cardiorespiratory distress ambulatory with normal gait Orientation/consciousness: patient oriented x3 [facility] Head: Yes normocephalic, Yes atraumatic and Yes other (Frontal hair thinning) Ears: hearing grossly normal bilaterally, TM's normal bilaterally and EAC's normal General nose exam: Normal external nose present, Normal nares present and No nasal discharge present Face and sinus: Yes face symmetric Mouth: Normal oral and palatal mucosa present and moist mucous membranes Eyes General: appearance normal, both eyes and all related structures Neck Neck: Yes full ROM, Yes no lymphadenopathy and Yes supple Chest Chest palpation & inspection: normal inspection of the chest Breast/axilla palpation: normal palpation of the breasts Resp Auscultation: clear to auscultation bilaterally Cardio Other: S1-S2 present regular rate and rhythm GI Other: Normal bowel sounds, soft, nontender, no mass palpated General: Yes deferred (Currently being followed by Dr. Jaimes ) Back/Spine/Pelvis Back: No back tenderness Skin General skin exam: no rashes or lesions noted Neuro General: patient oriented x3, gait normal, moves all extremities, Normal light touch and pain sensation, no focal motor deficits and CN's II-XI intact bilaterally Extrem General: Yes full ROM, Yes no joint enlargement, Yes no pedal edema, Yes no calf tenderness and Yes normal gait Psych Appearance: grossly normal and well kempt Mental Status: mental status grossly normal Speech and movement: Normal speech and movement present Affect: normal affect Attitude: cooperative Thought process: Normal thought process present Assessment and Plan Assessment & Plan (1) Annual visit for general adult medical examination with abnormal findings: Code(s): Z00.01 - Encounter for general adult medical examination with abnormal findings Plan: Fasting lipid panel ordered. Recommended dental visit every 6 months and regu lar eye exams, at least every 2 years. Take adequate calcium in diet and vitamin-D 3 at 2000 IU per cap once a day, in addition to weight-bearing exercises to help maintain good muscle tone and weight control. Instructed to do self-breast exam, and recommended to get yearly mammogram, starting at age 40. (2) HLD (hyperlipidemia): Code(s): E78.5 - Hyperlipidemia, unspecified Qualifiers: Hyperlipidemia type: mixed hyperlipidemia Qualified Code(s): E78.2 - Mixed hyperlipidemia Plan: Fasting lipid panel ordered . Continue with atorvastatin 10 mg daily , in addition to adherence to low-cholesterol diet and regular exercise, at least 30 minutes 3 to 4 times a week. Advised patient to make healthy food choices, eat more fruits, vegetables, whole grains, wild caught fish and low-fat dairy. Limit amount of meat and fried or fatty food products, as well as processed foods and fast foods. (3) PCOS (polycystic ovarian syndrome): Code(s): E28.2 - Polycystic ovarian syndrome Plan: Currently on control and spironolactone, followed by endocrine clinic (4) Heartburn: Code(s): R12 - Heartburn Plan: Takes famotidine as needed (5) Postablative hypothyroidism: Code(s): E89.0 - Postprocedural hypothyroidism Plan: Currently on levothyroxine 125 mcg daily, followed by Dr. Louis Orders: Orders Lipid Panel Today E78.5 - Hyperlipidemia, unspecified Medications: Changed From famotidine 40 mg PO DAILY 90 days 90 tabs 3RF R12 - Heartburn To famotidine 40 mg PO DAILY PRN R12 - Heartburn Coding Level of Care Code Est Pt Prev Care 18-39y(59088) Diagnoses Annual visit for general adult medical examination with abnormal findings Z00.01 Mixed hyperlipidemia E78.2 Hyperlipidemia type: mixed hyperlipidemia PCOS (polycystic ovarian syndrome) E28.2 Heartburn R12 Postablative hypothyroidism E89.0 Additional Codes ALINA-7 Assessment Billing - ALINA-7 Assessment Tool: ALINA-7 Assessment 01161 ([id number])
== END 2023-10-21 12:04 | disposition home or self-care (01) ==
PROVIDERS: Visit Provider Internal Medicine
DX: Z00.00 Encounter for general adult medical examination without abnormal findings (principal); E78.2 Mixed hyperlipidemia; E28.2 Polycystic ovarian syndrome; R12 Heartburn; E89.0 Postprocedural hypothyroidism
CPT/HCPCS: 99395

== ENCOUNTER 2023-10-22 06:07 | Outpatient (REF) | payer OTHER, SELFPAY ==
[2023-10-22 08:08] LABS: Anion Gap 12 (12-20); Blood Urea Nitrogen 16 mg/dL (9-16); Calcium 9.1 mg/dL (8.4-10.2); Carbon Dioxide 23 mmol/L (22-29); Chloride 108 mmol/L (96-108); Cholesterol 232 mg/dL (<200); Estimated Glomerular Filt Rate > 60; Glucose Random 87 mg/dL (60-115); HDL Cholesterol 61 mg/dL (>40); LDL Cholesterol Calculated 145 mg/dL (<100); Potassium 3.8 mmol/L (3.3-5.1); Sodium 139 mmol/L (135-145); Triglycerides 134 mg/dL (<150)
[2023-10-22 08:15] LABS: Free T4 (Free Thyroxine) 1.21 ng/dL (0.71-1.85)
== END 2023-10-22 06:08 | disposition home or self-care (01) ==
LOC: HO.LAB 06:07
PROVIDERS: Visit Provider Internal Medicine Endocrinology, Diabetes & Metabolism
DX: E28.2 Polycystic ovarian syndrome (principal); E89.0 Postprocedural hypothyroidism; E78.5 Hyperlipidemia, unspecified
CPT/HCPCS: 36415; 80048; 80061; 84439; 84443

== ENCOUNTER 2024-03-27 07:51 | Outpatient (AMB) | payer OTHER, SELFPAY ==
[2024-03-27 08:00] VITALS: BP 116/82; PULSE 92; BMI 30.5
--- NOTE | 2024-03-27 08:00 | A.OFFVIS_ITS ---
Vital Signs 03/27/24 08:00 Height 5 ft 8 in Weight 200 lb 13.458 oz BMI 30.5 BP 116/82 Blood Pressure Location Lt brachial Position Sitting Pulse 92 Pulse Source Pulse Oximeter Intake Visit Reasons: f/u PCOS/hypothyroidism-confirmed Intake Note: Patient present today for PCOS/Hypothyroidism follow up visit. Insurance Account Specialist Required: No Accompanied by: Self / Same As Patient Allergies amoxicillin [Amoxicillin] Allergy (Unknown, Verified 03/27/24 08:05) HIVES HPI Comments Details: 33 YO Female with a PMHx of Grave's disease S/P I-131 ablation, now with hypothyroidism who is seen in F/U for hypothyroidism as well as PCOS. She was diagnosed with Grave's disease at 9 years old and was followed by a Pediatric Drywall Contractor at [facility]. She received I131 ablation in 1999, but is unsure of the dose. She subsequently developed postablative hypothyroidism. She has remained on levothyroxine ever since, but has had many issues with compliance. She at times is overreplaced when she is taking her lt4 daily, and at times hypothyroid when she is poorly compliant. She is currently using levothyroxine 125 mcg daily. This was decreased from 137 mcg when her TSH was found to be overly suppressed. 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 She had a biochemical assessment for this which revealed an elevated DHEA-s, Androstenedione and testosterone levels. She had ovarian and adrenal imaging in 2017 which was WNL. It appears she did undergo a 1 mg DSST in 2017 which was WNL. After her initial visit with me we repeated her full evaluation, which reveals labs concerning for [place]'s disease with elevated ACTH, as well as elevated androgen, testosterone and DHEA-s levels. Midnight salivary cortisol levels were elevated, but these were completed when she was working overnight. 1 mg overnight DSST was WNL. She also underwent a pituitary MRI which was WNL. Adrenal imaging was completed 11/21/2021 completely WNL with no evidence of any adrenal masses. There were 2 small cystic appearing lesions noted within the kidney. Ovarian imaging was completed 10/30/2021 and also was WNL. We completed a salivary cortisol profile, which was also WNL effectively ruling out ajith's disease. She is now off night shifts, and is working a regular daytime schedule. Labs were repeated with ACTH and Cortisol am WNL. Her Androstenedione, DHEA-s and both Free and Total testosterone have been elevated. She is not actively trying to conceive. She is currently using Sprintec OCP. Labs reveal elevated LDL. She denies any family history of premature cardiac or CAD. She was started on Atorvastatin 10 mg PO daily and LDL is now at goal. She is tolerating this well. Ovarian US: 10/30/2021 Uterus: The uterus is anteverted, anteflexed and measures 8.6 cm in length, 4.02 mL in AP and 5.70 cm in transverse dimension. The double wall endometrial thickness is 1.33 cm.? The uterus is smooth in contour and has normal myometrial echogenicity. ? No visible fibroid. Adnexa: Both ovaries are visualized. There is normal color flow to the adnexa. There is no ovarian torsion.? There is no pelvic ascites or fluid collection. Right ovary measures 3.08 x 2.13 x 2.70 cm and volume 9.27 mL. No focal lesion seen. Previously right ovary measured 3.3 x 2.1 x 3.4 cm. Left ovary measures 2.68 x 2.14 x 2.33 cm and volume 7.00 mL. The left ovary is unremarkable. Previously it measured 2.8 x 2.1 x 2.0 cm. There is no free fluid in cul-de-sac. US/US pelvic and transvaginal IMPRESSION: Unremarkable uterus and ovaries. CT Abdomen: 11/21/2021 FINDINGS: LUNG BASES: Unremarkable? LIVER, GALLBLADDER, AND BILIARY TREE: Unremarkable? PANCREAS: Unremarkable? SPLEEN: Unremarkable? ADRENAL GLANDS AND KIDNEYS: The adrenal glands are normal-appearing. No nodule is seen. There are 2 small low-attenuation lesions in the lower pole of the left kidney probably representing cysts. The largest measures 1 cm. No imaging follow-up is indicated. The kidneys are otherwise normal appearing. BOWEL LOOPS: There is diverticulosis of the colon. Visualized bowel is otherwise unremarkable. There is a small esophageal hernia. The stomach is otherwise unremarkable.? LYMPH NODES: Normal. VASCULAR: Unremarkable. BONES: Unremarkable? CT/CT abdomen wo/w con IMPRESSION: Normal-appearing adrenal glands. No adrenal lesion seen. Small left renal cysts. Diverticulosis of the colon. Small esophageal hernia. Labs: Laboratory Tests 12/19/22 12/19/22 06:02 06:02 Triglycerides 171 Cholesterol 167 LDL Cholesterol Direct 77 LDL Cholesterol, Calc 77 HDL Cholesterol 56 taking the BCP. Nl menses . Has increased hair growth bothersome. No excessive hair growth On L-T4 claims compliance . Not planning . Currently on sprionolactone and BCP [facility] Medical History (Updated 10/21/23 @ 14:50 by Sherlyn Beth MD) Annual visit for general adult medical examination with abnormal findings ANITA II (cervical intraepithelial neoplasia II) Adjustment disorder with mixed anxiety and depressed mood Esophageal hiatal hernia HLD (hyperlipidemia) PCOS (polycystic ovarian syndrome) Renal cyst Elevated testosterone level Hirsutism ASCUS with positive high risk HPV Heartburn Preeclampsia Postablative hypothyroidism Graves disease Vitamin D deficiency Surgical History Status post loop electrosurgical excision procedure (LEEP) of cervix Family History Paternal Grandmother Hypothyroidism Father Substance use disorder Social History Household Members: Spouse and Children Housing: House Patient Tobacco Use Status: Never used Tobacco e-Cigarette/Vaping Use: Never Used service: No Current occupational status: employed Current occupation: [employer] Sexual orientation: Straight/Heterosexual Gender identity: Female Cognitive needs: No Hearing needs: No Vision needs: Yes Female Reproductive History Menstrual Age of Menarche: 10 Physical Exam Vital Signs: Last Vital Signs Pulse 92 03/27/24 08:00 BP 116/82 03/27/24 08:00 BMI result Body Mass Index 30.5 Const Other: Thyroid gland is decrease in size weighs about 5 g. There are no thyroid nodules palpated. There is a scant amount of hair growth present on the chin and the sideburn region Assessment & Plan Assessment & Plan (1) PCOS (polycystic ovarian syndrome): Code(s): E28.2 - Polycystic ovarian syndrome Category: Medical Plan: This is a 32-year-old white female with a history of PCOS currently on control pill and sprironlactone . Plan is to continue present management (2) Postablative hypothyroidism: Code(s): E89.0 - Postprocedural hypothyroidism Category: Medical Plan: Currently be replaced on 125 mcg levothyroxine. Appears to be clinically euthyroid. Plan is to check TSH and free T4 iand adjust levothyroxine accordingly (3) HLD (hyperlipidemia): Code(s): E78.5 - Hyperlipidemia, unspecified Category: Medical Qualifiers: Hyperlipidemia type: mixed hyperlipidemia Qualified Code(s): E78.2 - Mixed hyperlipidemia Plan: Currently on atorvastatin 10 mg q.d. previously was not compliant Will recheck lipid profile Orders: Orders Lipid Panel Today E78.5 - Hyperlipidemia, unspecified Coding Level of Care Code Est Pt Level 3 (02994) Diagnoses PCOS (polycystic ovarian syndrome) E28.2 Postablative hypothyroidism E89.0 Mixed hyperlipidemia E78.2 Hyperlipidemia type: mixed hyperlipidemia
== END 2024-03-27 08:15 | disposition home or self-care (01) ==
PROVIDERS: PCP Internal Medicine; Visit Provider Internal Medicine Endocrinology, Diabetes & Metabolism
DX: E28.2 Polycystic ovarian syndrome (principal); E89.0 Postprocedural hypothyroidism; E78.2 Mixed hyperlipidemia
CPT/HCPCS: 99213

== ENCOUNTER → 2024-03-27 07:51 | Outpatient (BNVA) | payer OTHER, SELFPAY | PROVIDERS: PCP Internal Medicine; Visit Provider Internal Medicine Endocrinology, Diabetes & Metabolism ==

== ENCOUNTER 2024-04-07 05:37 | Outpatient (REF) | payer OTHER, SELFPAY ==
[2024-04-07 07:47] LABS: Cholesterol 146 mg/dL (<200); HDL Cholesterol 55 mg/dL (>40); LDL Cholesterol Calculated 69 mg/dL (<100); Triglycerides 112 mg/dL (<150)
[2024-04-07 08:07] LABS: Free T4 (Free Thyroxine) 1.23 ng/dL (0.71-1.85); Thyroid Stimulating Hormone 0.56 uIU/mL (0.32-4.0)
== END 2024-04-07 05:38 | disposition home or self-care (01) ==
LOC: HO.LAB 05:37
PROVIDERS: Visit Provider Internal Medicine Endocrinology, Diabetes & Metabolism
DX: E89.0 Postprocedural hypothyroidism (principal); E78.5 Hyperlipidemia, unspecified
CPT/HCPCS: 36415; 80061; 84439; 84443

== ENCOUNTER 2024-04-11 14:00 | Outpatient (AMB) | payer OTHER, SELFPAY ==
[2024-04-11 14:09] VITALS: BP 118/76; BMI 30.5
--- NOTE | 2024-04-11 14:09 | A.OFFVIS_ITS ---
Vital Signs 04/11/24 14:09 Height 5 ft 8 in Weight 200 lb 9.93 oz BMI 30.5 BP 118/76 Intake Visit Reasons: [employer] annual exam/DO NOT RS Machining Associate Required: No Information Interpreted: non-clinical & clinical Cooking Chef: Cooking Chef Present (Jailene TAY) Accompanied by: Self / Same As Patient Allergies amoxicillin [Amoxicillin] Allergy (Unknown, Verified 04/11/24 14:14) HIVES Is last menstrual period known: Yes Last menstrual period: 03/31/24 HPI Comments Details: Presenting for annual exam. No complaints. Last Pap/HPV was in 02/26 and was negative [facility] Medical History Annual visit for general adult medical examination with abnormal findings ANITA II (cervical intraepithelial neoplasia II) Adjustment disorder with mixed anxiety and depressed mood Esophageal hiatal hernia HLD (hyperlipidemia) PCOS (polycystic ovarian syndrome) Renal cyst Elevated testosterone level Hirsutism ASCUS with positive high risk HPV Heartburn Preeclampsia Postablative hypothyroidism Graves disease Vitamin D deficiency Surgical History Status post loop electrosurgical excision procedure (LEEP) of cervix Family History Paternal Grandmother Hypothyroidism Father Substance use disorder Social History Household Members: Spouse and Children Housing: House Patient Tobacco Use Status: Never used Tobacco e-Cigarette/Vaping Use: Never Used service: No Current occupational status: employed Current occupation: [employer] Sexual orientation: Straight/Heterosexual Gender identity: Female Cognitive needs: No Hearing needs: No Vision needs: Yes Female Reproductive History Menstrual Age of Menarche: 10 Date of last menstrual period: 03/31/24 Date of last pap smear: 03/03/23 Review of Systems Const All systems reviewed & are unremarkable except as noted in HPI and below Card Reports as per HPI Resp Reports as per HPI GI Reports as per HPI and Reports no additional complaints Reports as per HPI Physical Exam Vital Signs: Last Vital Signs BP 118/76 04/11/24 14:09 BMI result Body Mass Index 30.5 Const General: cooperative, healthy appearing and comfortable Chest Chest palpation & inspection: normal inspection of the chest and normal palpation of entire chest wall Breast/axilla inspection: normal inspection of the breasts and normal inspection of the axillae Breast/axilla palpation: normal palpation of the breasts, normal palpation of the axillae and no axillary lymphadenopathy Resp Effort & Inspection: normal respiratory effort Auscultation: clear to auscultation bilaterally Percussion: percussion normal Cardio Palpation: normal PMI Rate: regular rate Rhythm: regular rhythm Heart sounds: no murmurs and no rubs Peripheral pulses: Peripheral pulses 2+ throughout GI Inspection: Yes normal to inspection Palpation (GI): Soft to palpation, nontender, no guarding, not rigid and No hepatosplenomegaly present Percussion: Yes normal to percussion Auscultation: normal bowel sounds Rectal Exam - Female: deferred General: Yes bladder normal to palpation External Female Exam: No lesion Speculum Exam - Vagina: normal appearance of the vagina, normal palpation, normal vaginal discharge and not erythematous Speculum Exam - Cervix: normal appearance of the cervix and normal palpation Bimanual exam- vagina & uterus: normal bimanual exam, normal palpation, uterine size normal, bladder normal to palpation, consistency normal and normal palpation Bimanual Exam- Adnexa, other: normal adnexae, no masses and no tenderness Assessment & Plan Assessment & Plan (1) Well woman exam: Comment: History of ANITA 2 status post LEEP in 12/25 with negative margins Code(s): Z01.419 - Encounter for gynecological examination (general) (routine) without abnormal findings Category: Medical Plan: Cotesting done. Counseled the patient about the recommended dietary allowance of 1000 mg of Kike cium & 600 IU of vitamin D. The patient was instructed to perform monthly self-breast exams and to schedule an annual exam in a year; All questions answered and the patient verbalized understanding. Instructed the patient to schedule annual exam in a year Coding Level of Care Code Est Pt Prev Care 18-39y(54614) Diagnoses Well woman exam Z01.419
== END 2024-04-11 14:25 | disposition home or self-care (01) ==
PROVIDERS: PCP Internal Medicine; Visit Provider Obstetrics & Gynecology
DX: Z01.419 Encounter for gynecological examination (general) (routine) without abnormal findings (principal)
CPT/HCPCS: 99395

== ENCOUNTER → 2024-04-11 14:00 | Outpatient (BNVA) | payer OTHER, SELFPAY | PROVIDERS: PCP Internal Medicine; Visit Provider Obstetrics & Gynecology ==

== ENCOUNTER 2024-04-11 17:27 | Outpatient (REF) | payer OTHER, SELFPAY ==
[2024-04-14 14:38] LABS: HPV mRNA E6/E7 Not Detected (Not Detected)
== END 2024-04-11 17:28 | disposition home or self-care (01) ==
LOC: HO.LNP 17:27
PROVIDERS: Visit Provider Obstetrics & Gynecology
DX: Z01.419 Encounter for gynecological examination (general) (routine) without abnormal findings (principal)
CPT/HCPCS: 87624; 88175

== ENCOUNTER 2024-09-22 06:16 | Outpatient (REF) | payer OTHER, SELFPAY ==
[2024-09-22 08:07] LABS: Free T4 (Free Thyroxine) 1.49 ng/dL (0.71-1.85); Thyroid Stimulating Hormone 0.36 uIU/mL (0.32-4.0)
== END 2024-09-22 06:17 | disposition home or self-care (01) ==
LOC: HO.LAB 06:16
PROVIDERS: PCP Internal Medicine; Visit Provider Internal Medicine Endocrinology, Diabetes & Metabolism
DX: E89.0 Postprocedural hypothyroidism (principal)
CPT/HCPCS: 36415; 84439; 84443

== ENCOUNTER 2024-09-25 07:51 | Outpatient (AMB) | payer OTHER, SELFPAY ==
[2024-09-25 07:53] VITALS: BP 120/80; PULSE 68; BMI 29.8
--- NOTE | 2024-09-25 07:53 | A.OFFVIS_ITS ---
Vital Signs 09/25/24 07:53 Height 5 ft 8 in Weight 195 lb 12.328 oz BMI 29.8 BP 120/80 Blood Pressure Location Lt brachial Position Sitting Pulse 68 Pulse Source Pulse Oximeter Intake Visit Reasons: f/u PCOS/hypothyroidism Intake Note: Patient present today for PCOS/Hypothyroidism follow up visit. 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 She was diagnosed with Grave's disease at 9 years old and was followed by a Pediatric [employer] at [facility]. She received I131 ablation in 1999, but is unsure of the dose. She subsequently developed postablative hypothyroidism. She has remained on levothyroxine ever since, but has had many issues with compliance. She at times is overreplaced when she is taking her lt4 daily, and at times hypothyroid when she is poorly compliant. She is currently using levothyroxine 125 mcg daily. This was decreased from 137 mcg when her TSH was found to be overly suppressed. 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 She had a biochemical assessment for this which revealed an elevated DHEA-s, Androstenedione and testosterone levels. She had ovarian and adrenal imaging in 2017 which was WNL. It appears she did undergo a 1 mg DSST in 2017 which was WNL. After her initial visit with me we repeated her full evaluation, which reveals labs concerning for Acme's disease with elevated ACTH, as well as elevated androgen, testosterone and DHEA-s levels. Midnight salivary cortisol levels were elevated, but these were completed when she was working overnight. 1 mg overnight DSST was WNL. She also underwent a pituitary MRI which was WNL. Adrenal imaging was completed 11/21/2021 completely WNL with no evidence of any adrenal masses. There were 2 small cystic appearing lesions noted within the kidney. Ovarian imaging was completed 10/30/2021 and also was WNL. We completed a salivary cortisol profile, which was also WNL effectively ruling out ajith's disease. She is now off night shifts, and is working a regular daytime schedule. Labs were repeated with ACTH and Cortisol am WNL. Her Androstenedione, DHEA-s and both Free and Total testosterone have been elevated. She is not actively trying to conceive. She is currently using Sprintec OCP. Labs reveal elevated LDL. She denies any family history of premature cardiac or CAD. She was started on Atorvastatin 10 mg PO daily and LDL is now at goal. She is tolerating this well. Ovarian US: 10/30/2021 Uterus: The uterus is anteverted, anteflexed and measures 8.6 cm in length, 4.02 mL in AP and 5.70 cm in transverse dimension. The double wall endometrial thickness is 1.33 cm.? The uterus is smooth in contour and has normal myometrial echogenicity. ? No visible fibroid. Adnexa: Both ovaries are visualized. There is normal color flow to the adnexa. There is no ovarian torsion.? There is no pelvic ascites or fluid collection. Right ovary measures 3.08 x 2.13 x 2.70 cm and volume 9.27 mL. No focal lesion seen. Previously right ovary measured 3.3 x 2.1 x 3.4 cm. Left ovary measures 2.68 x 2.14 x 2.33 cm and volume 7.00 mL. The left ovary is unremarkable. Previously it measured 2.8 x 2.1 x 2.0 cm. There is no free fluid in cul-de-sac. US/US pelvic and transvaginal IMPRESSION: Unremarkable uterus and ovaries. CT Abdomen: 11/21/2021 FINDINGS: LUNG BASES: Unremarkable? LIVER, GALLBLADDER, AND BILIARY TREE: Unremarkable? PANCREAS: Unremarkable? SPLEEN: Unremarkable? ADRENAL GLANDS AND KIDNEYS: The adrenal glands are normal-appearing. No nodule is seen. There are 2 small low-attenuation lesions in the lower pole of the left kidney probably representing cysts. The largest measures 1 cm. No imaging follow-up is indicated. The kidneys are otherwise normal appearing. BOWEL LOOPS: There is diverticulosis of the colon. Visualized bowel is otherwise unremarkable. There is a small esophageal hernia. The stomach is otherwise unremarkable.? LYMPH NODES: Normal. VASCULAR: Unremarkable. BONES: Unremarkable? CT/CT abdomen wo/w con IMPRESSION: Normal-appearing adrenal glands. No adrenal lesion seen. Small left renal cysts. Diverticulosis of the colon. Small esophageal hernia. Labs: Laboratory Tests 12/19/22 12/19/22 06:02 06:02 Triglycerides 171 Cholesterol 167 LDL Cholesterol Direct 77 LDL Cholesterol, Calc 77 HDL Cholesterol 56 taking the BCP. Nl menses . . No excessive hair growth On L-T4 claims compliance . Not planning . Currently on sprionolactone and BCP. Lipid levels have normalized on the atorvastatin [facility] Medical History Annual visit for general adult medical examination with abnormal findings ANITA II (cervical intraepithelial neoplasia II) Adjustment disorder with mixed anxiety and depressed mood Esophageal hiatal hernia HLD (hyperlipidemia) PCOS (polycystic ovarian syndrome) Renal cyst Elevated testosterone level Hirsutism ASCUS with positive high risk HPV Heartburn Preeclampsia Postablative hypothyroidism Graves disease Vitamin D deficiency Surgical History Status post loop electrosurgical excision procedure (LEEP) of cervix Family History Paternal Grandmother Hypothyroidism Father Substance use disorder Social History Household Members: Spouse and Children Housing: House Patient Tobacco Use Status: Never used Tobacco e-Cigarette/Vaping Use: Never Used service: No Current occupational status: employed Current occupation: [employer] Sexual orientation: Straight/Heterosexual Gender identity: Female Cognitive needs: No Hearing needs: No Vision needs: Yes Female Reproductive History Menstrual Age of Menarche: 10 Physical Exam Vital Signs: Last Vital Signs Pulse 68 09/25/24 07:53 BP 120/80 09/25/24 07:53 BMI result Body Mass Index 29.8 Assessment & Plan Assessment & Plan (1) PCOS (polycystic ovarian syndrome): Code(s): E28.2 - Polycystic ovarian syndrome Category: Medical Plan: This is a 32-year-old white female with a history of PCOS currently on control pill and sprironlactone . Plan is to continue present management. At this point, patient returned to the care of her primary care provider returned back to endocrinology as needed (2) Postablative hypothyroidism: Code(s): E89.0 - Postprocedural hypothyroidism Category: Medical Plan: Currently be replaced on 125 mcg levothyroxine. Appears to be clinically and biochemically euthyroid. Plan is to continue the current therapy. At this point, patient returned to the care of her primary care provider returned back to endocrinology as needed (3) HLD (hyperlipidemia): Code(s): E78.5 - Hyperlipidemia, unspecified Category: Medical Qualifiers: Hyperlipidemia type: mixed hyperlipidemia Qualified Code(s): E78.2 - Mixed hyperlipidemia Plan: Currently on atorvastatin 10 mg q.d. . Lipid levels now at goal Continue current management. At this point, patient returned to the care of her primary care provider returned back to endocrinology as needed Orders: Orders Thyroid Stimulating Hormone 09/22/24 E89.0 - Postprocedural hypothyroidism Free T4 (Free Thyroxine) 09/22/24 E89.0 - Postprocedural hypothyroidism Medications: Refilled spironolactone 100 mg PO DAILY 90 tabs 1RF Coding Level of Care Code Est Pt Level 3 (16352) Diagnoses PCOS (polycystic ovarian syndrome) E28.2 Postablative hypothyroidism E89.0 Mixed hyperlipidemia E78.2 Hyperlipidemia type: mixed hyperlipidemia
== END 2024-09-25 08:10 | disposition home or self-care (01) ==
PROVIDERS: PCP Internal Medicine; Visit Provider Internal Medicine Endocrinology, Diabetes & Metabolism
DX: E28.2 Polycystic ovarian syndrome (principal); E89.0 Postprocedural hypothyroidism; E78.2 Mixed hyperlipidemia
CPT/HCPCS: 99213

== ENCOUNTER 2024-10-24 12:13 | Outpatient (AMB) | payer OTHER, SELFPAY ==
[2024-10-24 12:41] VITALS: BP 116/78; PULSE 81; TEMP 36.7; O2SAT 100; BMI 29.8
--- NOTE | 2024-10-24 12:41 | MHC.PC.OV ---
Vital Signs 10/24/24 12:41 Height 5 ft 8 in Weight 196 lb BMI 29.8 BP 116/78 Blood Pressure Location Rt brachial Position Sitting Pulse 81 Pulse Source Pulse Oximeter Temp 98.0 F Temp Source Oral Pulse Oximetry (%) 100 Oxygen Delivery Method Room Air Intake Visit Reasons: PE Intake Note: Pt is here today for her PE: Last papsmear 03/01/23 Allergies amoxicillin [Amoxicillin] Allergy (Unknown, Verified 10/24/24 13:23) HIVES Medication List - Last Reconciled 10/24/24 by Sherlyn Beth MD atorvastatin 10 mg PO BEDTIME famotidine 40 mg PO DAILY PRN levothyroxine 125 mcg PO DAILY norgestimate-ethinyl estradiol 0.25-35 mg-mcg (Sprintec (28)) 1 tab PO DAILY 3 months spironolactone 100 mg PO DAILY Tobacco use date assessed: 10/24/24 Dental Screening Dental Screen Date: 10/24/24 Did you have a dental visit in the last 12 months?: Yes Did you have a dental problem in the last 6 months where you did not have access to dental care?: No Was dental information given to patient?: Patient has dentist HPI PE HPI Details 33 year-old lady with past medical history significant for dyslipidemia, history of Graves disease s/p postablative hypothyroidism , and PCOS, here today her physical exam. She is currently on atorvastatin and levothyroxine 125 mch daily . She is up-to-date with all her vaccines She sees Dr. Jaimes for her routine Pap and pelvic exam, with last cervical cancer screening done in 2022 with benign findings.. She has been found to have a an esophageal hernia, takes famotidine almost on a daily basis due to frequent heartburn symptoms, which has been helping. [facility] Medical History (Updated 10/24/24 @ 13:39 by Sherlyn Beth MD) History of Graves' disease History of vitamin D deficiency Dyslipidemia (high LDL; low HDL) Annual visit for general adult medical examination with abnormal findings ANITA II (cervical intraepithelial neoplasia II) Adjustment disorder with mixed anxiety and depressed mood Esophageal hiatal hernia HLD (hyperlipidemia) PCOS (polycystic ovarian syndrome) Renal cyst Elevated testosterone level Hirsutism ASCUS with positive high risk HPV Heartburn Preeclampsia Postablative hypothyroidism Vitamin D deficiency Surgical History Status post loop electrosurgical excision procedure (LEEP) of cervix Family History Paternal Grandmother Hypothyroidism Father Substance use disorder Social History Household Members: Spouse and Children Housing: House Patient Tobacco Use Status: Never used Tobacco e-Cigarette/Vaping Use: Never Used service: No Current occupational status: employed Current occupation: [employer] Sexual orientation: Straight/Heterosexual Gender identity: Female Cognitive needs: No Hearing needs: No Vision needs: Yes Female Reproductive History Menstrual Age of Menarche: 10 Questionnaire PHQ-9 Over the last 2 weeks, how often have you been bothered by any of the following problems? 1. Little interest or pleasure in doing things: not at all 2. Feeling down, depressed, or hopeless: not at all 3. Trouble falling or staying asleep, or sleeping too much: not at all 4. Feeling tired or having little energy: not at all 5. Poor appetite or overeating: not at all 6. Feeling bad about yourself - or that you are a failure or have let yourself or your family down: not at all 7. Trouble concentrating on things, such as reading the newspaper or watching television: not at all 8. Moving or speaking so slowly that other people could have noticed. Or the opposite - being so fidgety or restless that you have been moving around a lot more than usual: not at all 9. Thoughts that you would be better off or of hurting yourself in some way: not at all Total score: 0 Depression Screening Interpretation: Negative Depression Screening Done: Yes 85157 - PHQ-9 Billing: Yes Source: Developed by Drs. Hayes Anderson, Loreto Jackson, Skyler Tavares and colleagues, with an educational marlene from [employer]. Thrive Questionnaire Date Thrive assessed: 10/17/24 I am a: Patient What is your living situation today?: I have a steady place to live Within the past 12 months, did the food you bought not last and you didn't have the money to get more?: Never true Within the past 12 months, did you worry whether your food would run out before you got money to buy more?: Never true Do you have trouble paying for medicines?: No Do you have trouble getting transportation to medical appointments?: No Do you have trouble paying your heating and electricity bill?: No Do you have trouble taking care of your child, family member or friend?: No Do you have trouble with day-to-day activities such as bathing, preparing meals, shopping, managing finances, etc.?: No Are you currently unemployed and looking for a job?: No Are you interested in more education?: No Please select the resources that you would like help with: None Currently or been in a relationship where the following occur: No concerns reported THRIVE Score: 0 AUDIT C Alcohol Use Questionnaire (AUDIT-C) 1. How often do you have a drink containing alcohol?: Monthly or less 2. How many drinks containing alcohol do you have on a typical day when you are drinking?: 1 or 2 3. How often do you have six or more drinks on one occasion?: Never Total Score: 1 ALINA-7 AMB Questionnaire ALINA-7 Date ALINA - 7 assessed: 10/24/24 Feeling nervous, anxious, or on edge: 0 = Not at all Not being able to stop or control worryin = Not at all Worrying too much about different things: 0 = Not at all Trouble relaxin = Not at all Being so restless that it is hard to sit still: 0 = Not at all Becoming easily annoyed or irritable: 0 = Not at all Feeling afraid as if something awful might happen: 0 = Not at all Total ALINA-7 score (0-4 normal; 5-9 mild; 10-14 moderate; 15-21 severe): 0 Source: Developed by Drs. Hayes Anderson, Loreto Jackson, Skyler Tavares and colleagues, with an educational marlene from [employer]. ALINA-7 Assessment Billing ALINA-7 Assessment Tool: ALINA-7 Assessment 07900 Review of Systems Const Denies body aches, Denies difficulty sleeping, Denies fatigue, Denies headache(s), Denies lethargy and Denies poor appetite Eyes Details: Has myopia, sees [place] Denies change in vision ENT Denies change in voice, Denies dysphagia, Denies dizziness, Denies headache(s), Denies hoarseness, Denies nasal congestion and Denies nasal discharge Card Denies chest pain, Denies irregular heart rhythm and Denies dyspnea Resp Denies cough and Denies dyspnea GI Denies abdominal pain, Denies melena, Denies bloating, Denies hematochezia, Denies change in bowel habits, Denies dysphagia, Denies diarrhea and Denies nausea Reports no additional complaints Musc Denies myalgias, Denies muscle cramps, Denies numbness and Denies tingling Skin/Breast Denies breast pain, Denies breast mass and Denies rash Neuro Reports no additional complaints, Denies dizziness, Denies headache(s), Denies numbness and Denies tingling Psych Reports no additional complaints Endo Denies cold intolerance, Denies fatigue and Denies heat intolerance Aj/Lymph Denies easy bruising Aller/Immun Reports no additional complaints Physical exam (Primary Care) Vital Signs: Last Vital Signs Temp 98.0 F 10/24/24 12:41 Pulse 81 10/24/24 12:41 BP 116/78 10/24/24 12:41 Pulse Ox 100 10/24/24 12:41 Oxygen Delivery Method Room Air 10/24/24 12:41 BMI result Body Mass Index 29.8 Tobacco/Smoking Status: Tobacco use Status Tobacco use date assessed 10/24/24 10/24/24 12:46 Patient Tobacco Use Status Never used Tobacco 10/24/24 12:41 e-Cigarette/Vaping Use Never Used 10/24/24 12:41 PHQ-9: PHQ-9 Score PHQ-9: Total score 0 10/24/24 13:36 Depression Screening Interpretation: Negative Thrive Assessment: Date of Thrive Assessment Date Thrive assessed 10/17/24 10/24/24 12:41 Currently or been in a relationship where the following occur: No concerns reported Advance Care Planning discussion: Completed/Scanned Date of discussion: 10/24/24 Who was present: Patient Forms completed: Health Care Proxy Time spent: 16-45 minutes Actual minutes spent: 2 Const Other: Alert oriented x3, no acute cardiorespiratory distress ambulatory with normal gait Orientation/consciousness: patient oriented x3 HENMT Ears: hearing grossly normal bilaterally, TM's normal bilaterally and EAC's normal General nose exam: Normal external nose present and Normal nares present Face and sinus: Yes face symmetric Mouth: Normal oral and palatal mucosa present and moist mucous membranes Eyes General: appearance normal, both eyes and all related structures Neck Neck: Yes full ROM, Yes no lymphadenopathy and Yes supple Chest Chest palpation & inspection: normal inspection of the chest Breast/axilla palpation: normal palpation of the breasts Resp Auscultation: clear to auscultation bilaterally Cardio Other: S1-S2 present regular rate and rhythm GI Other: Normal bowel sounds, soft, nontender, no mass palpated General: Yes deferred (Currently being followed by Dr. Jaimes ) Back/Spine/Pelvis Back: No back tenderness Skin General skin exam: no rashes or lesions noted Neuro General: patient oriented x3, gait normal, moves all extremities, Normal light touch and pain sensation, no focal motor deficits and CN's II-XI intact bilaterally Extrem General: Yes full ROM, Yes no joint enlargement, Yes no pedal edema, Yes no calf tenderness and Yes normal gait Psych Appearance: grossly normal and well kempt Mental Status: mental status grossly normal Speech and movement: Normal speech and movement present Affect: normal affect Attitude: cooperative Thought process: Normal thought process present Results Reviewed Results Reviewed: Laboratory Tests 09/22/24 06:27 TSH 0.36 Free T4 1.49 Coding Level of Care Code Est Pt Prev Care 18-39y(53092) Diagnoses Annual visit for general adult medical examination with abnormal findings Z00. Dyslipidemia (high LDL; low HDL) E78.5 PCOS (polycystic ovarian syndrome) E28.2 Postablative hypothyroidism E89.0 Additional Codes PHQ-9 - 22100 - PHQ-9 Billing: Yes ([id number]) ALINA-7 Assessment Billing - ALINA-7 Assessment Tool: ALINA-7 Assessment 01965 ([id number]) Vital Signs *Quality* - Advance Care Planning discussion: Completed/Scanned ([id number]) Vital Signs *Quality* - Time spent: 16-45 minutes ([id number]) Assessment & Plan Assessment & Plan (1) Annual visit for general adult medical examination with abnormal findings: Code(s): Z00.01 - Encounter for general adult medical examination with abnormal findings Category: Medical Plan: Fasting lipids, liver enzymes, vitamin-D level ordered. Continue regular dental visit every 6 months and regular eye exams, at least every 2 years. Take adequate calcium in diet and vitamin-D 3 at 2000 IU per cap once a day, in addition to weight-bearing exercises to help maintain good muscle tone and weight control. Instructed to do self-breast exam, and recommended to get yearly mammogram, starting at age 40. Up-to-date with her cervical cancer screening. Up-to-date with her flu vaccine and Tdap (2) Dyslipidemia (high LDL; low HDL): Code(s): E78.5 - Hyperlipidemia, unspecified Category: Medical Plan: Fasting lipids ordered. Continue with atorvastatin 10 mg daily in addition to adherence to healthy eating habits and regular exercise. (3) PCOS (polycystic ovarian syndrome): Code(s): E28.2 - Polycystic ovarian syndrome Category: Medical Plan: Followed by OBGYN (4) Postablative hypothyroidism: Code(s): E89.0 - Postprocedural hypothyroidism Category: Medical Plan: Thyroid levels are within normal limits. Continue with current dose of levothyroxine at 125 mcg daily Orders: Orders Lipid Panel 10/24/24 E78.5 - Hyperlipidemia, unspecified, Z00.01 - Encounter for general adult medical examination with abnormal findings, Z86.39 - Personal history of other endocrine, nutritional and metabolic disease Alanine Aminotransferase 10/24/24 E78.5 - Hyperlipidemia, unspecified, Z00.01 - Encounter for general adult medical examination with abnormal findings, Z86.39 - Personal history of other endocrine, nutritional and metabolic disease Aspartate Amino Transferase 10/24/24 E78.5 - Hyperlipidemia, unspecified, Z00.01 - Encounter for general adult medical examination with abnormal findings, Z86.39 - Personal history of other endocrine, nutritional and metabolic disease Vitamin D 25-OH Total 10/24/24 E78.5 - Hyperlipidemia, unspecified, Z00.01 - Encounter for general adult medical examination with abnormal findings, Z86.39 - Personal history of other endocrine, nutritional and metabolic disease Medications: Refilled atorvastatin 10 mg PO BEDTIME 90 tabs 1RF E78.5 - Hyperlipidemia, unspecified
== END 2024-10-24 13:40 | disposition home or self-care (01) ==
PROVIDERS: PCP Internal Medicine; Visit Provider Internal Medicine
DX: Z00.01 Encounter for general adult medical examination with abnormal findings (principal); E78.5 Hyperlipidemia, unspecified; E28.2 Polycystic ovarian syndrome; E89.0 Postprocedural hypothyroidism

== ENCOUNTER → 2024-10-24 12:13 | Outpatient (BNVA) | payer OTHER, SELFPAY | PROVIDERS: PCP Internal Medicine; Visit Provider Internal Medicine | DX: Z00.01 Encounter for general adult medical examination with abnormal findings (principal); E78.5 Hyperlipidemia, unspecified; E28.2 Polycystic ovarian syndrome; E89.0 Postprocedural hypothyroidism; Z79.899 Other long term (current) drug therapy | CPT/HCPCS: 96127 ==

== ENCOUNTER 2024-11-03 06:01 | Outpatient (REF) | payer OTHER, SELFPAY ==
[2024-11-03 08:47] LABS: Alanine Aminotransferase 9 U/L (0-31); Aspartate Amino Transferase 17 U/L (5-31); Cholesterol 170 mg/dL (<200); HDL Cholesterol 66 mg/dL (>40); LDL Cholesterol Calculated 76 mg/dL (<100); Triglycerides 141 mg/dL (<150)
[2024-11-03 08:58] LABS: Vitamin D 25-OH Total 28.3 ng/mL (>30)
== END 2024-11-03 06:02 | disposition home or self-care (01) ==
LOC: HO.LAB 06:01
PROVIDERS: Visit Provider Internal Medicine
DX: Z00.01 Encounter for general adult medical examination with abnormal findings (principal); E78.5 Hyperlipidemia, unspecified; Z86.39 Personal history of other endocrine, nutritional and metabolic disease
CPT/HCPCS: 36415; 80061; 82306; 84450; 84460

== ENCOUNTER 2025-08-17 08:29 | Outpatient (AMB) | payer OTHER, SELFPAY ==
--- NOTE | 2025-08-17 08:32 | MHC.OFFWIV ---
Intake Vital Signs 08/17/25 08:33 Pulse 108 H Pulse Source Pulse Oximeter Temp 98.4 F Temp Source Oral Pulse Oximetry (%) 100 Oxygen Delivery Method Room Air Intake Visit Reasons: EP difficulty breathing, phlegm, cough Patient Tobacco Use Status: Never used Tobacco Allergies amoxicillin (Amoxicillin) Allergy (Unknown, Verified 10/24/24 13:23) HIVES HPI HPI Comments History of Present Illness Details History - The patient is a 34 year old female presenting with cough and difficulty breathing x 2 days - She reports feeling unwell since Wednesday, with symptoms progressing to a deep cough productive of greenish-brownish sputum. - She has been experiencing difficulty breathing, particularly when lying down, which has forced her to sleep sitting up and caused her to gasp for air. - Associated symptoms include some wheezing, a craggly sensation in her chest, blocked ears, and a headache that occurred yesterday. - She denies any fevers, ear pain, or sinus pain. - For self-treatment, she has taken Mucinex and DayQuil. - The patient has no personal history of asthma or COPD. - Her boyfriend recently had a 24-hour illness, and her mother has recently had pneumonia. [facility], [facility] Medical History (Updated 08/17/25 @ 08:46 by Arianna Luis PA-C) History of Graves' disease History of vitamin D deficiency Dyslipidemia (high LDL; low HDL) Annual visit for general adult medical examination with abnormal findings ANITA II (cervical intraepithelial neoplasia II) Adjustment disorder with mixed anxiety and depressed mood Esophageal hiatal hernia HLD (hyperlipidemia) PCOS (polycystic ovarian syndrome) Renal cyst Elevated testosterone level Hirsutism ASCUS with positive high risk HPV Heartburn Preeclampsia Postablative hypothyroidism Vitamin D deficiency Surgical History Status post loop electrosurgical excision procedure (LEEP) of cervix Family History Paternal Grandmother Hypothyroidism Father Substance use disorder Social History Household Members: Spouse and Children Housing: House Patient Tobacco Use Status: Never used Tobacco e-Cigarette/Vaping Use: Never Used service: No Current occupational status: employed Current occupation: [employer] Sexual orientation: Straight/Heterosexual Gender identity: Female Cognitive needs: No Hearing needs: No Vision needs: Yes Female Reproductive History Menstrual Age of Menarche: 10 Review of Systems Narrative Review of Systems - Constitutional: Denies fever, reports generalized malaise. - Respiratory: Reports a deep, productive cough with greenish-brownish sputum, orthopnea, and some wheezing. Denies shortness of breath. - HEENT: Reports ear congestion. Denies ear pain and sinus pain. - Neurological: Reports a headache on the previous day. All systems reviewed and are unremarkable except as noted in HPI Physical Exam Exam Exam: Physical Exam General: Cooperative, healthy appearing, comfortable and no acute distress Orientation/consciousness: Patient oriented x3 Limitations: No limitations Head: Normal to inspection Ears: Hearing grossly normal bilaterally, external ears normal, EAC's normal bilaterally and TM's normal bilaterally, but patient reports ears feel blocked Nose: Normal external nose present, Normal nares present and No nasal discharge present Face and sinus: Normal facial exam and sinuses nontender, but patient reports headache yesterday Mouth: Normal oral and palatal mucosa present and moist mucous membranes Throat: tonsils normal, no exudates, uvula midline, posterior oropharynx erythema Eyes: Appearance normal, both eyes and all related structures Neck: Normal visual inspection, full ROM Respiratory: Clear to auscultation bilaterally. Normal respiratory effort, able to speak in complete sentences, actively coughing, no respiratory distress, not tachypneic, no tripod positioning and no use of accessory muscles Cardiovascular: tachycardic rate and regular rhythm. Normal S1 and S2 Skin: No rashes or lesions noted Neuro: Patient oriented x3 Extremities: Normal to inspection and Yes no clubbing, cyanosis or edema Assessment & Plan Assessment & Plan (1) URI, acute: Code(s): J06.9 - Acute upper respiratory infection, unspecified Plan: Plan Patient was informed and verbally consented to the use of an ambient scribe for clinic note documentation during this visit. - VSS, pt well appearing and PE unremarkable. - The patient's presentation with a deep, productive cough and clear lung sounds on exam is suggestive of acute bronchitis. - Pneumonia is considered less likely given the clear lung auscultation and perfect oxygen saturation of 100%. - A triple swab for influenza, COVID-19, and RSV has been ordered to identify a potential viral etiology. - A cough suppressant was prescribed for nighttime use to aid with sleep, with a warning that it is for adult use only. - The patient was advised to continue Mucinex and consider a daily allergy pill and Flonase nasal spray for ear congestion, with caution about combining antihistamines. - The patient's heart rate was elevated at 108-115 bpm. This is likely secondary to dehydration, as she is afebrile. The patient was counseled to increase fluid intake to improve hydration, which is expected to help lower her heart rate. - Due to the timing of her symptoms, the patient qualifies for Paxlovid if her COVID-19 test is positive. - The benefits of the antiviral medication, such as reducing symptom severity and illness duration, were discussed, along with potential side effects. - The patient agreed to take Paxlovid if she tests positive. - Arrangements will be made for follow-up with test results later today. Orders: Orders SARS-CoV2/FLU/RSV Today R09.89 - Other specified symptoms and signs involving the circulatory and respiratory systems Medications: New benzonatate DO NOT ALLOW CHILDREN TO HAVE ACCESS TO THIS MEDICATION IT IS DANGEROUS FOR CHILDREN. 200 mg PO BEDTIME PRN 10 caps 0RF cough Coding Level of Care Code Est Pt Level 3 (93819) Diagnoses URI, acute J06.9
[2025-08-17 08:33] VITALS: PULSE 108; TEMP 36.9; O2SAT 100
== END 2025-08-17 08:42 | disposition home or self-care (01) ==
PROVIDERS: PCP Internal Medicine; Visit Provider Physician Assistant
DX: J06.9 Acute upper respiratory infection, unspecified (principal)

== ENCOUNTER 2025-08-17 08:29 | Outpatient (REF) | payer OTHER, SELFPAY ==
[2025-08-17 13:15] LABS: Resp Syncy Virus RNA Qual PCR NEGATIVE (Negative); SARS COV2 PCR INHOUSE NEGATIVE (Negative)
== END 2025-08-17 08:30 | disposition home or self-care (01) ==
LOC: HO.LAB 08:29
PROVIDERS: Physician Assistant; PCP Internal Medicine
DX: J06.9 Acute upper respiratory infection, unspecified (principal); R09.89 Other specified symptoms and signs involving the circulatory and respiratory systems; R00.0 Tachycardia, unspecified
CPT/HCPCS: 87637